=== PATIENT | female | born 2000 | race Caucasian/White ===

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

== ENCOUNTER 2020-02-09 21:29 | Emergency (ER) | payer MEDICAID ==
[~2020-02-09] VITALS: Ht 150 cm; Wt 45.4 kg
[2020-02-09] MEDS ORDERED: NS IV 500 ML 500 ML IV ONE (22:37)
--- NOTE | 2020-02-09 22:42 | ED Abdominal Pain ---
General Chief Complaint: Abdominal/GI Problems Stated Complaint: ABDOMINAL PAIN Nursing Triage Note: Pt amb to room #5 with c/o epigastric pain that increases in severity after eating. Pt reports symptoms began approx x2wks ago. Pt denies nausa, vomitng, diarrhea, fever, or chills. Pt noted to be hesitant to answer questions asked by this RN. S/O at bedside. Sepsis Screen: No Definite Risk Source of Information: Patient Exam Limitations: No Limitations History of Present Illness Date Seen by Provider: Feb 09, 2020 Time Seen by Provider: 22:20 Initial Comments The patient presents to ER by private conveyance with her significant other does most talking for her stating that she is very shy. She is not a particularly helpful historian. The patient states she has been experiencing pain for about the last hour reading as a 10 out of 10 in her epigastric region. An hour and a half prior to that she ate chicken strips and vietnamese fries. She says she's been having these episodic pain usually after eating for the past 2 weeks. It really started getting bad Friday, 3 days ago. She's had no nausea vomiting bloating or distention of her abdomen. No abdominal surgeries or known medical history. She does not follow with a doctor. She does not take any medications. She says her last menstrual cycle was January 07 she's not sure if she is regular nor she sure how long her periods usually last. She is not on her menses presently. She denies painful urination. She's had no endoscopy, history of constipation or diarrhea, fever, chills. She has not tried to take anything for her pain yet. Her last oral intake was 2-1/2 hours ago. Allergies and Home Medications Allergies Coded Allergies: No Known Drug Allergies (Unverified , 12/31/10) Home Medications No Active Prescriptions or Reported Meds Patient Home Medication List Home Medication List Reviewed: Yes Review of Systems Review of Systems Constitutional: No chills, No diaphoresis EENTM: No Blurred Vision, No Double Vision Respiratory: Denies Cough, Denies Shortness of Air Cardiovascular: Denies Chest Pain, Denies Lightheadedness Gastrointestinal: Denies Constipated, Denies Diarrhea, Denies Nausea Genitourinary: Denies Burning, Denies Discharge Musculoskeletal: No back pain, No joint pain Skin: No pruritus, No rash Psychiatric/Neurological: Denies Headache, Denies Numbness, Denies Paresthesia All Other Systems Reviewed Negative Unless Noted: Yes Past Uoysdfm-Uoaeht-Cwvwhd Hx Patient Social History Alcohol Use: Denies Use Recreational Drug Use: No Smoking Status: Never a Smoker 2nd Hand Smoke Exposure: Yes Recent Foreign Travel: No Contact w/Someone Who Travel: No Recent Infectious Disease Expo: No Recent Hopitalizations: No Immunizations Up To Date Tetanus Booster (TDap): Less than 5yrs PED Vaccines UTD: Yes Seasonal Allergies Seasonal Allergies: No Past Medical History Surgeries: No Respiratory: No Cardiac: No Neurological: No Genitourinary: No Gastrointestinal: No Musculoskeletal: No Endocrine: No Cancer: No Psychosocial: No Integumentary: No Blood Disorders: No Family Medical History No Pertinent Family Hx Physical Exam Vital Signs Vital Signs - First Documented 02/09/20 22:09 Temp 36.9 Pulse 17 Resp 16 B/P (MAP) 124/83 (97) Pulse Ox 99 O2 Delivery Room Air Capillary Refill : Less Than 3 Seconds Height/Weight/BMI Height: 5'0" Weight: 90lbs. oz. 40.971427xa; 20.00 BMI Method:Estimated General Appearance: WD/WN, mild distress HEENT: PERRL/EOMI, pharynx normal Neck: non-tender, full range of motion, supple, normal inspection Respiratory: chest non-tender, lungs clear, normal breath sounds, no respiratory distress, no accessory muscle use Cardiovascular: normal peripheral pulses, regular rate, rhythm, no edema Peripheral Pulses: 2+ Dorsalis Pedis (R), 2+ Left Dors-Pedis (L) Gastrointestinal: normal bowel sounds (all 4 quadrants), soft, tenderness (epigastric and right upper quadrant. Michaud sign positive. Negative for Rovsing sign and McBurney's point tenderness, psoas sign or other mesenteric signs.) Neurologic/Psychiatric: alert, normal mood/affect, oriented x 3 Skin: normal color, warm/dry Progress/Results/Core Measures Results/Orders Lab Results Laboratory Tests Test 02/09/20 22:19 02/09/20 22:38 Range/Units White Blood Count 7.7 4.3-11.0 10^3/uL Red Blood Count 5.05 4.35-5.85 10^6/uL Hemoglobin 14.1 11.5-16.0 G/DL Hematocrit 42 35-52 % Mean Corpuscular Volume 83 80-99 FL Mean Corpuscular Hemoglobin 28 25-34 PG Mean Corpuscular Hemoglobin Concent 34 32-36 G/DL Red Cell Distribution Width 13.0 10.0-14.5 % Platelet Count 362 130-400 10^3/uL Mean Platelet Volume 10.4 7.4-10.4 FL Neutrophils (%) (Auto) 53 42-75 % Lymphocytes (%) (Auto) 36 12-44 % Monocytes (%) (Auto) 9 0-12 % Eosinophils (%) (Auto) 2 0-10 % Basophils (%) (Auto) 1 0-10 % Neutrophils # (Auto) 4.1 1.8-7.8 X 10^3 Lymphocytes # (Auto) 2.7 1.0-4.0 X 10^3 Monocytes # (Auto) 0.7 0.0-1.0 X 10^3 Eosinophils # (Auto) 0.2 0.0-0.3 10^3/uL Basophils # (Auto) 0.1 0.0-0.1 10^3/uL Sodium Level 141 135-145 MMOL/L Potassium Level 3.9 3.6-5.0 MMOL/L Chloride Level 103 98-107 MMOL/L Carbon Dioxide Level 27 21-32 MMOL/L Anion Gap 11 5-14 MMOL/L Blood Urea Nitrogen 8 7-18 MG/DL Creatinine 1.03 0.60-1.30 MG/DL Estimat Glomerular Filtration Rate > 60 BUN/Creatinine Ratio 8 Glucose Level 95 70-105 MG/DL Calcium Level 9.9 8.5-10.1 MG/DL Corrected Calcium 8.5-10.1 MG/DL Total Bilirubin 0.4 0.1-1.0 MG/DL Aspartate Amino Transf (AST/SGOT) 14 5-34 U/L Alanine Aminotransferase (ALT/SGPT) 14 0-55 U/L Alkaline Phosphatase 68 40-136 U/L C-Reactive Protein High Sensitivity 0.03 0.00-0.50 MG/DL Total Protein 8.2 6.4-8.2 GM/DL Albumin 4.9 H 3.2-4.5 GM/DL Lipase 14 8-78 U/L Urine Color YELLOW Urine Clarity CLEAR Urine pH 8.5 5-9 Urine Specific [place] 1.015 L 1.016-1.022 Urine Protein NEGATIVE NEGATIVE Urine Glucose (UA) NEGATIVE NEGATIVE Urine Ketones NEGATIVE NEGATIVE Urine Nitrite NEGATIVE NEGATIVE Urine Bilirubin NEGATIVE NEGATIVE Urine Urobilinogen 0.2 < = 1.0 MG/DL Urine Leukocyte Esterase NEGATIVE NEGATIVE Urine RBC (Auto) NEGATIVE NEGATIVE Urine RBC NONE /HPF Urine WBC RARE /HPF Urine Crystals NONE /LPF Urine Bacteria TRACE /HPF Urine Casts NONE /LPF Urine Mucus NEGATIVE /LPF Urine Culture Indicated NO My Orders Orders - CLARIBEL MILLS Cbc With Automated Diff (02/09/20 22:37) Hs C Reactive Protein (02/09/20 22:37) Comprehensive Metabolic Panel (02/09/20 22:37) Lipase (02/09/20 22:37) Ed Iv/Invasive Line Start (02/09/20 22:37) Ns Iv 500 Ml (Sodium Chloride 0.9%) (02/09/20 22:37) Pantoprazole Injection (Protonix Injecti (02/09/20 22:45) Ketorolac Injection (Toradol Injection) (02/09/20 22:45) Lidocaine 2% Viscous 15 Ml (Xylocaine Vi (02/10/20 00:30) Famotidine Tablet (Pepcid Tablet) (02/10/20 00:18) Antacid Suspension (Mylanta Suspension (02/10/20 00:30) Medications Given in ED Current Medications Medications Dose Ordered Sig/Radha Route Start Time Stop Time Status Last Admin Dose Admin Ketorolac Tromethamine 30 mg ONCE ONCE IVP 02/09/20 22:45 02/09/20 22:46 DC 02/09/20 23:03 30 MG Pantoprazole 40 mg ONCE ONCE IV 02/09/20 22:45 02/09/20 22:46 DC 02/09/20 23:03 40 MG Sodium Chloride 500 ml @ 0 mls/hr Q0M ONCE IV 02/09/20 22:37 02/09/20 22:39 DC 02/09/20 23:03 0 MLS/HR Vital Signs/I&O 02/09/20 02/10/20 22:09 03:40 Temp 36.9 Pulse 17 72 Resp 16 16 B/P (MAP) 124/83 (97) 119/76 Pulse Ox 99 100 O2 Delivery Room Air Blood Pressure Mean: 97 Progress Progress Note #1: Time: 22:41 Progress Note Gallbladder, gastritis, pancreatitis? Plan to check labs, urinalysis, bedside . If her labs are not acute and she is still aseptic vital signs and her pain is improved with some Toradol and pantoprazole and the plan would be to send her home for outpatient ultrasound tomorrow. Progress Note #2: Time: 00:18 Progress Note Labs are unremarkable. Patient says the Toradol did not help her pain. Plan to give her a GI cocktail. Likely will set her up tomorrow for outpatient ultrasound. Progress Note #3: Time: 00:33 Progress Note Nurse reports that as she went in the room with the GI cocktail medications the patient decided to leave AMA. No reason was given other than the boyfriend said he had to get to work. We did not get a chance to interact with the patient before she left. She did seem to be aware of her surroundings, cognizant of the situation and possessed the capacity to make decisions for herself. Nursing instructed her to follow-up with her doctor or return to the ER for symptoms did not improve or worsened. Nursing also warned her that since the workup was not complete the could be undiscovered pathology that could result in disability or even . Departure Impression Primary Impression: Right upper quadrant abdominal pain Disposition: 07 AGAINST MEDICAL ADVICE Condition: Against Medical Advice Departure-Patient Inst. Decision time for Depature: 00:33 Referrals: NO,LOCAL PHYSICIAN (PCP/Family) Primary Care Physician Patient Instructions: Acute Abdomen (Belly Pain) Add. Discharge Instructions: Please return to the ER having worsening or continuing symptoms. Follow-up with your primary care doctor. Omeprazole 20 mg twice a day for the next month. All discharge instructions reviewed with patient and/or family. Voiced understanding. Scripts No Active Prescriptions or Reported Meds CLARIBEL MILLS Feb 09, 2020 22:42
[2020-02-09] MEDS ORDERED: PANTOPRAZOLE 40 MG (PROTONIX) VIAL IV ONE (22:45)
[2020-02-09] MEDS ORDERED: KETOROLAC 30 MG/ML VIAL IVP ONE (22:45)
[2020-02-09 22:47] LABS: BILIRUBIN,URINE NEGATIVE (NEGATIVE); CLARITY,URINE CLEAR; COLOR,URINE YELLOW; GLUCOSE, URINE (UA) NEGATIVE (NEGATIVE); KETONES,URINE NEGATIVE (NEGATIVE); LEUKOCYTE ESTERASE ,URINE NEGATIVE (NEGATIVE); NITRITE,URINE NEGATIVE (NEGATIVE); PH,URINE 8.5 (5-9); PROTEIN,URINE NEGATIVE (NEGATIVE)
[2020-02-09 22:51] LABS: BASOPHILS # (AUTO) 0.1 10^3/uL (0.0-0.1); BASOPHILS % (AUTO) 1 % (0-10); EOSINOPHILS # (AUTO) 0.2 10^3/uL (0.0-0.3); EOSINOPHILS % (AUTO) 2 % (0-10); HEMATOCRIT 42 % (35-52); HEMOGLOBIN 14.1 G/DL (11.5-16.0); LYMPHOCYTES # (AUTO) 2.7 X 10^3 (1.0-4.0); LYMPHOCYTES % (AUTO) 36 % (12-44); MEAN CORPUSCULAR HEMOGLOBIN 28 PG (25-34); MEAN CORPUSCULAR HGB CONC 34 G/DL (32-36); MEAN CORPUSCULAR VOLUME 83 FL (80-99); MEAN PLATELET VOLUME 10.4 FL (7.4-10.4); MONOCYTES # (AUTO) 0.7 X 10^3 (0.0-1.0); MONOCYTES % (AUTO) 9 % (0-12); NEUTROPHILS # (AUTO) 4.1 X 10^3 (1.8-7.8); NEUTROPHILS % (AUTO) 53 % (42-75); PLATELET COUNT 362 10^3/uL (130-400); WHITE BLOOD COUNT 7.7 10^3/uL (4.3-11.0)
[2020-02-09 22:53] LABS: BACTERIA,URINE TRACE /HPF; WBC,URINE RARE /HPF
[2020-02-09 23:03] LABS: ALANINE AMINOTRANSFERASE 14 U/L (0-55); ALBUMIN 4.9 GM/DL (3.2-4.5); ALKALINE PHOSPHATASE 68 U/L (40-136); BILIRUBIN,TOTAL 0.4 MG/DL (0.1-1.0); BUN/CREATININE RATIO 8; CALCIUM 9.9 MG/DL (8.5-10.1); CARBON DIOXIDE 27 MMOL/L (21-32); CHLORIDE 103 MMOL/L (98-107); CREATININE SERUM 1.03 MG/DL (0.60-1.30); GFR ESTIMATED > 60; GLUCOSE 95 MG/DL (70-105); LIPASE 14 U/L (8-78); POTASSIUM 3.9 MMOL/L (3.6-5.0); SODIUM 141 MMOL/L (135-145); TOTAL PROTEIN 8.2 GM/DL (6.4-8.2)
[2020-02-10] MEDS ORDERED: FAMOTIDINE 20 MG (PEPCID) TABLET PO STA (00:18)
--- NOTE | 2020-02-10 00:25 | NUR ---
TO ROOM TO ADMINISTER MEDICATIONS ORDERED BY DR MILLS, PATIENT AND S.O. ASK HOW MUCH LONGER IT WILL BE BEFORE THEY CAN GO. THIS RN DISCUSSED THE TREATMENT PLAN INCLUDING MEDICATIONS IN ROOM TO BE ADMINISTERED NOW. PATIENT DISCUSSES FURTHER WITH S.O. STATES SHE WILL TAKE THE MEDS WHICH ARE SCANNED, THEN WHEN DOCUMENTATION IS COMPLETE PATIENT CHANGES HER MIND AND STATES SHE JUST WANTS TO GO. AMA PAPERWORK DISCUSSED ADN AGREED TO. THIS RN REVERSES ALL MEDICATION DOCUMENTATION. PATIENT SIGNS AMA PAPERWORK AFTER RN REVIEWS WITH PATIENT THEN ESCORTED TO REGISTRATION ON HER WAY OUT.
[2020-02-10] MEDS ORDERED: ANTACID SUSP 30 ML UDC (MYLANTA) PO ONE (00:30)
[2020-02-10] MEDS ORDERED: LIDOCAINE 2% VISCOUS 15 ML UDC PO ONE (00:30)
[2020-02-10 03:40] VITALS: BP 119/76
--- OUTSIDE RECORDS SUMMARY | 2020-02-11 23:54 | XMS REPORT | Clinical Summary ---
Author Author Admin, Rjei Posadas [facility] Address Unknown Phone Unavailable Allergies, Adverse Reactions, Alerts Allergy Name Reaction Description Start Date Severity Status Pr ovider No Known Allergies Jud alford LRT Conditions or Problems Problem Name Problem Code Onset Date Status Entry Date Provider Comment Standard Description Annotate Bacterial tonsillitis Active Malu Sell PHYSICAL SCIENCE TEACHER Medication List Medication Instructions Start Date Stop Date Generic Name NDC Status Provider Patient Instruction IBUPROFEN 600 MG ORAL TABLET 1 po q6-8hr PRN IBUP ROFEN 16650835950 Active Malu Sell PHYSICAL SCIENCE TEACHER Active AMOXICILLIN 500 MG ORAL CAPSULE 1 cap by mouth three times a day AMOXICILLIN 72274246142 Active Malu Sell PHYSICAL SCIENCE TEACHER Active Vital Signs Date Name Value Unit Range Description blood pressure, diastolic 66 mm[Hg] BP avilez blood pressure, systolic 104 mm[Hg] BP sys pulse rate E&M 82 /min Heart rate temperature E&M 99.1 [degF] Body temp erature weight E&M 77.50 [lb_av] Weight Measure d Diagnostic Results Date Name Value Unit Range Description Office Visit: fever cough - Chemistry HDL cholesterol, serum, target level 40 mg/dL cholesterol, target level 200 mg/dL triglyceride, target level 150 mg/dL Encounters Code Encounter Date Provider Facility CPT-91487 Level 3 Est. Patient 13:01:31 CDT Malu Nieves ll PHYSICAL SCIENCE TEACHER [facility]
--- OUTSIDE RECORDS SUMMARY | 2020-02-11 23:54 | XMS REPORT | Clinical Summary ---
Author Author Admin, Reji Posadas [facility] Address Unknown Phone Unavailable Allergies, Adverse Reactions, Alerts Allergy Name Reaction Description Start Date Severity Status Pr ovider No Known Allergies Jud alford LRT Conditions or Problems Problem Name Problem Code Onset Date Status Entry Date Provider Comment Standard Description Annotate Bacterial tonsillitis Active Malu Sell SHIPPING AND RECEIVING WEIGHER Medication List Medication Instructions Start Date Stop Date Generic Name NDC Status Provider Patient Instruction IBUPROFEN 600 MG ORAL TABLET 1 po q6-8hr PRN IBUP ROFEN 31840190129 Active Malu Sell SHIPPING AND RECEIVING WEIGHER Active AMOXICILLIN 500 MG ORAL CAPSULE 1 cap by mouth three times a day AMOXICILLIN 49681138055 Active Malu Sell SHIPPING AND RECEIVING WEIGHER Active Vital Signs Date Name Value Unit [...] mg/dL Encounters Code Encounter Date Provider Facility CPT-93566 Level 3 Est. Patient 13:01:31 CDT Malu Se ll SHIPPING AND RECEIVING WEIGHER [facility]
--- OUTSIDE RECORDS SUMMARY | 2020-02-11 23:54 | XMS REPORT | Clinical Summary ---
Author Author Admin, Reji Posadas 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 Patient 13:01:31 CDT Maul Se ll ORNAMENTAL METAL WORKER APPRENTICE [facility]
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
--- OUTSIDE RECORDS SUMMARY | 2020-02-11 23:54 | XMS REPORT | Clinical Summary ---
Author Author Admin, Reji Posadas [facility] Address Unknown Phone Unavailable Allergies, Adverse Reactions, Alerts Allergy Name Reaction Description Start Date Severity Status Pr ovider No Known Allergies Jud alford LRT Conditions or Problems Problem Name Problem Code Onset Date Status Entry Date Provider Comment Standard Description Annotate Bacterial tonsillitis Active Malu Sell DIRECTOR OF GRADUATE ADMISSIONS Medication List Medication Instructions Start Date Stop Date Generic Name NDC Status Provider Patient Instruction IBUPROFEN 600 MG ORAL TABLET 1 po q6-8hr PRN IBUP ROFEN 93570406163 Active Malu Sell DIRECTOR OF GRADUATE ADMISSIONS Active AMOXICILLIN 500 MG ORAL CAPSULE 1 cap by mouth three times a day AMOXICILLIN 76444655353 Active Malu Sell DIRECTOR OF GRADUATE ADMISSIONS Active Vital Signs Date Name Value Unit [...] mg/dL Encounters Code Encounter Date Provider Facility CPT-94508 Level 3 Est. Patient 13:01:31 CDT Malu Se ll DIRECTOR OF GRADUATE ADMISSIONS [facility]
--- OUTSIDE RECORDS SUMMARY | 2020-02-11 23:54 | XMS REPORT | Clinical Summary ---
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 Medication List Medication Instructions Start Date Stop Date Generic Name NDC Status Provider Patient Instruction IBUPROFEN 600 MG ORAL TABLET 1 po q6-8hr PRN IBUP ROFEN 30301777922 Active Malu Sell SCAN COORDINATOR Active AMOXICILLIN 500 MG ORAL CAPSULE 1 cap by mouth three times a day AMOXICILLIN 77200379914 No Longer Active Malu Sell SCAN COORDINATOR Active AMOXICILLIN 500 MG ORAL CAPSULE 1 cap by mouth three times a day AMOXICILLIN 500 MG ORAL CAPSULE 505010 AMOXICILLIN Inactive Vital Signs Date Name Value Unit Range [...] mg/dL Encounters Code Encounter Date Provider Facility CPT-74050 Level 3 Est. Patient 13:01:31 CDT Malu Se ll SCAN COORDINATOR [facility]
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
--- OUTSIDE RECORDS SUMMARY | 2020-02-11 23:55 | XMS REPORT ---
Author Author Reji Schultz [facility] [place] Address [address] [place] [address] Care Team Providers Care Director Of Operations Support Name Role Phone BHUPENDRA Schultz Unavailable PROBLEMS Unknown Problems ALLERGIES No Information ENCOUNTERS Encounter Location Date Diagnosis [facility] [address] [phone] Jan, Influenza A J10.1 and Fever R50.9 [facility] [address] [phone] Jan, Bacterial conjunctivitis of right eye H10.9 [facility] [place] [address] [place] [address] Jan, Viral upper respiratory tract infection J06.9 [facility] [place] [id number] [place] [phone] Aug, Encounter for examination to participate in special olympics Z02.5 ; Exercise counseling Z71.89 and Dietary counseling Z71.3 [facility] [address] [phone] Aug, Acute seasonal allergic rhin itis due to other allergen J30.2 [facility] [address] [id number] [address] [place] [phone] Oct, Allergic contact dermatitis, unspecified trigger L23.9 [facility] [address] [phone] Mar, Seasonal allergies J30.2 [facility] [address] [id number] [address] [place] [phone] Mar, [facility] [address] [place] [phone] Aug, [facility] [address] [facility] [id number] [address] [place] [phone] Aug, [facility] [address] [facility] [id number] [address] [place] [phone] Jul, [facility] [address] [facility] [id number] [address] [place] [phone] March, [facility] [address] [facility] [id number] [address] [place] [phone] Mar, IMMUNIZATIONS No Known Immunizations SOCIAL HISTORY Never Assessed REASON FOR VISIT PLAN OF CARE VITAL SIGNS Height 56 in 2014-09-01 Weight 77.2 lbs 2014-09-01 Temperature 97.6 degrees Fahrenheit 2014-09-01 Heart Rate 67 bpm 2014-09-01 Respiratory Rate 20 2014-09-01 Blood pressure systolic 90 mmHg 2014-09-01 Blood pressure diastolic 50 mmHg 2014-09-01 MEDICATIONS No Known Medications RESULTS No Results PROCEDURES No Known procedures INSTRUCTIONS MEDICATIONS ADMINISTERED No Known Medications MEDICAL (GENERAL) HISTORY Type Description Date Surgical History No Surgical history information
--- OUTSIDE RECORDS SUMMARY | 2020-02-11 23:55 | XMS REPORT ---
Author Author Reji Loaiza Doctor Organization [facility] [place] Address Unknown Phone Unavailable Care Team Providers Care Corporate Librarian Name Role Phone Migration, Doctor Unavailable Unavailable PROBLEMS Unknown Problems ALLERGIES No Information ENCOUNTERS Encounter Location Date Diagnosis [facility] [address] [id number] [address] [place] [phone] Jan, Influenza A J10.1 and Fever R50.9 [facility] [address] [id number] [address] [place] [phone] Jan, Bacterial conjunctivitis of right eye H10.9 [facility] [place] [address] [place] [address] Jan, Viral upper respiratory tract infection J06.9 [facility] [place] [id number] [place] [address] [phone] Aug, Encounter for examination to participate in special olympics Z02.5 ; Exercise counseling Z71.89 and Dietary counseling Z71.3 [facility] [address] [id number] [address] [place] [phone] Aug, Acute seasonal allergic rhin itis due to other allergen J30.2 [facility] [address] [id number] [address] [place] [phone] Oct, Allergic contact dermatitis, unspecified trigger L23.9 [facility] [address] [id number] [address] [place] [phone] Mar, Seasonal allergies J30.2 [facility] [address] [id number] [address] [place] [phone] Mar, [facility] [address] [id number] [address] [place] [phone] Aug, [facility] [id number] [place] [phone] Aug, [facility] [address] [facility] [id number] [address] [place] [phone] Jul, [facility] [address] [facility] [id number] [address] [place] [phone] March, [facility] [address] [facility] [id number] [address] [place] [phone] Mar, IMMUNIZATIONS No Known Immunizations SOCIAL HISTORY Never Assessed REASON FOR VISIT [facility] PLAN OF CARE VITAL SIGNS MEDICATIONS No Known Medications RESULTS No Results PROCEDURES No Known procedures INSTRUCTIONS MEDICATIONS ADMINISTERED No Known Medications MEDICAL (GENERAL) HISTORY Type Description Date Surgical History No Surgical history information
--- OUTSIDE RECORDS SUMMARY | 2020-02-11 23:55 | XMS REPORT ---
Author Author Reji CARRANZA Organization [facility] Address [address] [place] [address] Care Team Providers Care Development Educator Name Role Phone GEOFFREY CARRANZA Unavailable PROBLEMS Unknown Problems ALLERGIES No Known Allergies ENCOUNTERS Encounter Location Date Diagnosis [facility] [address] [id number] [address] [place] [phone] Jan, Influenza A J10.1 and Fever R50.9 [facility] WALK IN [facility] [address] [id number] [address] [place] [phone] Jan, Bacterial conjunctivitis of right eye H10.9 [facility] [place] [address] [place] [address] Jan, Viral upper respiratory tract infection J06.9 [facility] [place] [address] [id number] [place] [address] [phone] Aug, Encounter for examination to participate in special olympics Z02.5 ; Exercise counseling Z71.89 and Dietary counseling Z71.3 [facility] WALK IN [facility] [address] [id number] [address] [place] [phone] Aug, Acute seasonal allergic rhin itis due to other allergen J30.2 [facility]ALK IN [facility] [address] [id number] [address] [place] [phone] Oct, Allergic contact dermatitis, unspecified trigger L23.9 [facility] WALK IN [facility] [address] [id number] [address] [place] [phone] Mar, Seasonal allergies J30.2 [facility] [address] [id number] [address] [place] [phone] Mar, [facility] [address] [id number] [address] [place] [phone] Aug, [facility] [address] [facility] [id number] [address] [place] [phone] Aug, [facility] [address] [facility] [id number] [address] [place] [phone] Jul, [facility] [address] [facility] [id number] [address] [place] [phone] March, [facility] [address] [facility] [id number] [address] [place] [phone] Mar, IMMUNIZATIONS No Known Immunizations SOCIAL HISTORY Never Assessed REASON FOR VISIT fever/cough/congestion. Started two days ago. - Robby KELLEY PLAN OF CARE Activity Details Follow Up if not improving with PCP or reg follow up Reason: VITAL SIGNS Height 60 in 2019-02-19 Weight 82 lbs 2019-02-19 Temperature 101.9 degrees Fahrenheit 2019-02-19 Heart Rate 90 bpm 2019-02-19 Respiratory Rate 20 2019-02-19 BMI 16.01 kg/m2 2019-02-19 Blood pressure systolic 102 mmHg 2019-02-19 Blood pressure diastolic 62 mmHg 2019-02-19 MEDICATIONS Medication Instructions Dosage Frequency Start Date End Date Duration S tatus Polytrim 62313-1.1 UNIT/ML Ophthalmic Four times a day 1 drop in to affected eye 6h Jan, 7 days Active Oseltamivir Phosphate 75 MG Orally Twice a day 1 capsule 12h Jan, 5 day(s) Active RESULTS Name Result Date Reference Range INFLUENZA A & B (IN HOUSE) INFLUENZA A positive INFLUENZA B negative Control + Lot # [id number] Exp date 2021-09-15 PROCEDURES Procedure Date Ordered Result Body Site INFLUENZA ASSAY W/OPTIC February 19, 2019 INSTRUCTIONS MEDICATIONS ADMINISTERED No Known Medications MEDICAL (GENERAL) HISTORY Type Description Date Surgical History No Surgical history information
--- OUTSIDE RECORDS SUMMARY | 2020-02-11 23:55 | XMS REPORT ---
Author Author Reji DECKER Organization [facility] Address [address] [place] [address] Care Team Providers Care Architectural Design Lecturer Name Role Phone BRIANNE MARY Unavailable PROBLEMS Unknown Problems ALLERGIES No Known Allergies ENCOUNTERS Encounter Location Date Diagnosis [facility] [address] [phone] Jan, Influenza A J10.1 and Fever R50.9 [facility] [address] [phone] Jan, Bacterial conjunctivitis of right eye H10.9 [facility] [place] [address] [place] [address] Jan, Viral upper respiratory tract infection J06.9 [facility] [place] [id number] [place] [phone] Aug, Encounter for examination to participate in special olympics Z02.5 ; Exercise counseling Z71.89 and Dietary counseling Z71.3 [facility] [address] [id number] [address] [place] [phone] Aug, Acute seasonal allergic rhin itis due to other allergen J30.2 [facility] [address] [id number] [address] [place] [phone] Oct, Allergic contact dermatitis, unspecified trigger L23.9 [facility] [address] [id number] [address] [place] [phone] Mar, Seasonal allergies J30.2 [facility] [address] [id number] [address] [place] [phone] Mar, [facility] [address] [place] [address] Aug, [facility] [address] [facility] [id number] [address] [place] [phone] Aug, [facility] [address] [facility] [id number] [address] [place] [phone] Jul, [facility] [address] [facility] [id number] [address] [place] [phone] March, [facility] [address] [facility] [id number] [address] [place] [phone] Mar, IMMUNIZATIONS No Known Immunizations SOCIAL HISTORY Never Assessed REASON FOR VISIT right eye pain et is red for the past 4 days. [email or web address] PLAN OF CARE Activity Details Follow Up if not improving with PCP or reg follow up Reason: VITAL SIGNS Height 60 in 2019-02-15 Weight 97.2 lbs 2019-02-15 Temperature 97.8 degrees Fahrenheit 2019-02-15 Heart Rate 72 bpm 2019-02-15 Respiratory Rate 20 2019-02-15 BMI 18.98 kg/m2 2019-02-15 Blood pressure systolic 100 mmHg 2019-02-15 Blood pressure diastolic 62 mmHg 2019-02-15 MEDICATIONS Medication Instructions Dosage Frequency Start Date End Date Duration S tatus Polytrim 64546-3.1 UNIT/ML Ophthalmic Four times a day 1 drop in to affected eye 6h Jan, 7 days Active RESULTS No Results PROCEDURES No Known procedures INSTRUCTIONS MEDICATIONS ADMINISTERED No Known Medications MEDICAL (GENERAL) HISTORY Type Description Date Surgical History No Surgical history information
== END 2020-02-10 00:33 | disposition left against medical advice (07) ==
LOC: EDUNIT# 21:29 → ER 21:31
DX: R10.11 Right upper quadrant pain (principal); Z77.22 Contact with and (suspected) exposure to environmental tobacco smoke (acute) (chronic)
CPT/HCPCS: 36415; 80053; 81000; 83690; 84703; 85025; 86141

== ENCOUNTER 2020-02-26 20:42 | Emergency (ER) | payer MEDICAID ==
[~2020-02-26] VITALS: Ht 59 cm; Wt 45.0 kg
--- NOTE | 2020-02-26 20:51 | NUR ---
PT TO OR 6 AT THIS TIME.
[2020-02-26] MEDS ORDERED: FAMOTIDINE 20MG/2ML IV (PEPCID) IV STA (20:58)
[2020-02-26] MEDS ORDERED: LACTATED RINGERS 1,000 ML IV ONE (20:58)
[2020-02-26] MEDS ORDERED: ONDANSETRON 4 MG/2 ML (SDV) Z0FRAN IVP ONE (21:00)
[2020-02-26] MEDS ORDERED: ANTACID SUSP 30 ML UDC (MYLANTA) PO ONE (21:00)
[2020-02-26] MEDS ORDERED: LIDOCAINE 2% VISCOUS 15 ML UDC PO ONE (21:00)
--- NOTE | 2020-02-26 21:14 | ED Abdominal Pain ---
General Chief Complaint: Abdominal/GI Problems Stated Complaint: NAUSEA AND TIGHTNESS IN STOMACH Nursing Triage Note: pt states her stomach is nauseated and after she ate spaghetti she feels like she needs to throw up. Sepsis Screen: No Definite Risk Source of Information: Patient Exam Limitations: No Limitations History of Present Illness Date Seen by Provider: Feb 26, 2020 Time Seen by Provider: 20:49 Initial Comments This 20-year-old young lady presents to the emergency room with complaints of abdominal tightness and that nausea without vomiting for about a week. Tonight her abdominal tightening became more intense and she developed intense upper abdominal pain while eating spaghetti. She is still nauseated but has not vomited. She denies any constipation or diarrhea. She does not know if she is . She has had no fever or other symptoms of infectious illness. She denies any alcohol, tobacco, or drug use. She has not taken any medications or treatments for her symptoms. Allergies and Home Medications Allergies Coded Allergies: No Known Drug Allergies (Unverified , 02/26/20) Home Medications Famotidine 20 Mg Tablet, 20 MG PO BID Prescribed by: MIGUEL DELONG on 02/26/202228 Ondansetron 4 Mg Tab.rapdis, 4 MG SL Q4H PRN for NAUSEA/VOMITING Prescribed by: MIGUEL DELONG on 02/26/202228 Patient Home Medication List Home Medication List Reviewed: Yes Review of Systems Review of Systems Constitutional: no symptoms reported EENTM: No Symptoms Reported Respiratory: No Symptoms Reported Cardiovascular: No Symptoms Reported Gastrointestinal: See HPI Genitourinary: No Symptoms Reported Musculoskeletal: no symptoms reported Skin: no symptoms reported Psychiatric/Neurological: No Symptoms Reported Endocrine: No Symptoms Reported Hematologic/Lymphatic: No Symptoms Reported Past Pncmzpe-Drgnct-Nebbkl Hx Past Med/Social Hx: Reviewed Nursing Past Med/Soc Hx Patient Social History Alcohol Use: Denies Use Recreational Drug Use: No Smoking Status: Never a Smoker Recent Foreign Travel: No Contact w/Someone Who Travel: No Recent Infectious Disease Expo: No Past Medical History Surgeries: No Respiratory: No Cardiac: No Neurological: No : No Genitourinary: No Gastrointestinal: No Musculoskeletal: No Endocrine: No HEENT: No Cancer: No Psychosocial: No Physical Exam Vital Signs Vital Signs - First Documented 02/26/20 20:47 Temp 36.7 Pulse 90 Resp 20 B/P (MAP) 119/74 (89) Pulse Ox 100 O2 Delivery Room Air Capillary Refill : Less Than 3 Seconds Height/Weight/BMI Height: '" Weight: lbs. oz. kg; 129.00 BMI Method: General Appearance: WD/WN, mild distress HEENT: PERRL/EOMI, normal ENT inspection, other (oropharynx somewhat dry) Neck: normal inspection Respiratory: lungs clear, normal breath sounds, no respiratory distress, no accessory muscle use Cardiovascular: regular rate, rhythm, no edema, no murmur Gastrointestinal: normal bowel sounds, soft; No distended; tenderness (throughout the upper abdomen) Extremities: normal inspection, no pedal edema Neurologic/Psychiatric: vegetables cook II-XII nml as tested, no motor/sensory deficits, alert, normal mood/affect, oriented x 3 Skin: normal color, warm/dry Progress/Results/Core Measures Results/Orders Lab Results Laboratory Tests Test 02/26/20 21:02 02/26/20 21:05 02/26/20 21:43 Range/Units Urine Color YELLOW Urine Clarity CLEAR Urine pH 6.5 5-9 Urine Specific [place] 1.010 L 1.016-1.022 Urine Protein NEGATIVE NEGATIVE Urine Glucose (UA) NEGATIVE NEGATIVE Urine Ketones NEGATIVE NEGATIVE Urine Nitrite NEGATIVE NEGATIVE Urine Bilirubin NEGATIVE NEGATIVE Urine Urobilinogen 0.2 < = 1.0 MG/DL Urine Leukocyte Esterase NEGATIVE NEGATIVE Urine RBC (Auto) NEGATIVE NEGATIVE Urine RBC NONE /HPF Urine WBC 0-2 /HPF Urine Crystals PRESENT H /LPF Urine Amorphous Sediment FEW BETITO URATES H /LPF Urine Bacteria TRACE /HPF Urine Casts NONE /LPF Urine Mucus NEGATIVE /LPF Urine Culture Indicated NO White Blood Count 6.8 4.3-11.0 10^3/uL Red Blood Count 4.81 4.35-5.85 10^6/uL Hemoglobin 13.4 11.5-16.0 G/DL Hematocrit 40 35-52 % Mean Corpuscular Volume 83 80-99 FL Mean Corpuscular Hemoglobin 28 25-34 PG Mean Corpuscular Hemoglobin Concent 34 32-36 G/DL Red Cell Distribution Width 13.4 10.0-14.5 % Platelet Count 328 130-400 10^3/uL Mean Platelet Volume 10.5 H 7.4-10.4 FL Neutrophils (%) (Auto) 53 42-75 % Lymphocytes (%) (Auto) 36 12-44 % Monocytes (%) (Auto) 8 0-12 % Eosinophils (%) (Auto) 2 0-10 % Basophils (%) (Auto) 1 0-10 % Neutrophils # (Auto) 3.6 1.8-7.8 X 10^3 Lymphocytes # (Auto) 2.4 1.0-4.0 X 10^3 Monocytes # (Auto) 0.5 0.0-1.0 X 10^3 Eosinophils # (Auto) 0.2 0.0-0.3 10^3/uL Basophils # (Auto) 0.1 0.0-0.1 10^3/uL Sodium Level 139 135-145 MMOL/L Potassium Level 3.7 3.6-5.0 MMOL/L Chloride Level 102 98-107 MMOL/L Carbon Dioxide Level 26 21-32 MMOL/L Anion Gap 11 5-14 MMOL/L Blood Urea Nitrogen 8 7-18 MG/DL Creatinine 0.94 0.60-1.30 MG/DL Estimat Glomerular Filtration Rate > 60 BUN/Creatinine Ratio 9 Glucose Level 76 70-105 MG/DL Calcium Level 9.9 8.5-10.1 MG/DL Corrected Calcium 8.5-10.1 MG/DL Total Bilirubin 0.4 0.1-1.0 MG/DL Aspartate Amino Transf (AST/SGOT) 16 5-34 U/L Alanine Aminotransferase (ALT/SGPT) 18 0-55 U/L Alkaline Phosphatase 75 40-136 U/L Total Protein 8.5 H 6.4-8.2 GM/DL Albumin 5.0 H 3.2-4.5 GM/DL Lipase 19 8-78 U/L Serum Test, Qualitative NEGATIVE NEGATIVE C-Reactive Protein High Sensitivity 0.02 0.00-0.50 MG/DL My Orders Orders - MIGUEL LOPEZ MD Cbc With Automated Diff (02/26/20 20:58) Comprehensive Metabolic Panel (02/26/20 20:58) Hcg,Qualitative Serum (02/26/20 20:58) Lipase (02/26/20 20:58) Ua Culture If Indicated (02/26/20 20:58) Ed Iv/Invasive Line Start (02/26/20 20:58) Lactated Ringers (Lr 1000 Ml Iv Solution (02/26/20 20:58) Ondansetron Injection (Zofran Injectio (02/26/20 21:00) Lidocaine 2% Viscous 15 Ml (Xylocaine Vi (02/26/20 21:00) Antacid Suspension (Mylanta Suspension (02/26/20 21:00) Famotidine Injection (Pepcid Injection) (02/26/20 20:58) Fentanyl Injection (Sublimaze Injection (02/26/20 21:45) Hs C Reactive Protein (02/26/20 21:43) Abdomen, Flat & Upright/Decub (02/26/20 21:56) Medications Given in ED Current Medications Medications Dose Ordered Sig/Radha Route Start Time Stop Time Status Last Admin Dose Admin Al Hydrox/Mg Hydrox/Simethicone 30 ml ONCE ONCE PO 02/26/20 21:00 02/26/20 21:01 DC 02/26/20 21:13 30 ML Fentanyl Citrate 50 mcg ONCE ONCE IVP 02/26/20 21:45 02/26/20 21:46 DC 02/26/20 21:47 50 MCG Lactated Ringer's 1,000 ml @ 0 mls/hr Q0M ONCE IV 02/26/20 20:58 02/26/20 21:01 DC 02/26/20 21:13 0 MLS/HR Lidocaine HCl 15 ml ONCE ONCE PO 02/26/20 21:00 02/26/20 21:01 DC 02/26/20 21:13 15 ML Ondansetron HCl 4 mg ONCE ONCE IVP 02/26/20 21:00 02/26/20 21:01 DC 02/26/20 21:13 4 MG Vital Signs/I&O 02/26/20 20:47 Temp 36.7 Pulse 90 Resp 20 B/P (MAP) 119/74 (89) Pulse Ox 100 O2 Delivery Room Air Blood Pressure Mean: 89 Progress Progress Note #1: Time: 21:13 Progress Note Patient was seen and examined. We will trial Zofran, Pepcid, and a GI cocktail. Basic labs have been obtained. IV fluids were ordered. Progress Note #2: Time: 22:24 Progress Note Workup was unremarkable. X-rays were obtained and were also unremarkable. GI cocktail and Pepcid did not resolve her pain. She received fentanyl 50 g which completely resolved her pain and she had no further tenderness on exam. Diagnostic Imaging Diagonstic Imaging: Xray Plain Films/CT/US/NM/MRI: abdomen Comments KUB and upright abdominal films were viewed by me. Report not yet available. No acute abnormalities appreciated. Departure Impression Primary Impression: Upper abdominal pain Additional Impression: Nausea Disposition: 01 HOME, SELF-CARE Condition: Improved Departure-Patient Inst. Decision time for Depature: 22:24 Patient Instructions: Acute Abdomen (Belly Pain), Adult (DC) Add. Discharge Instructions: Start with a noncarbonated clear liquid diet and gradually advance your diet with small quantities of bland food as tolerated. Take Pepcid twice daily as prescribed. Use Zofran (ondansetron) as prescribed if needed for nausea and vomiting. Follow-up with your doctor next week. Return to emergency room if you have worsening symptoms. I expect your symptoms to gradually improve over the next several days. All discharge instructions reviewed with patient and/or family. Voiced understanding. Scripts Ondansetron (Ondansetron Odt) 4 Mg Tab.rapdis 4 MG SL Q4H PRN for NAUSEA/VOMITING, #10 TAB Prov: MIGUEL LOPEZ MD 02/26/20 Famotidine (Pepcid) 20 Mg Tablet 20 MG PO BID, #30 TAB Prov: MIGUEL LOPEZ MD 02/26/20 MIGUEL LOPEZ MD Feb 26, 2020 21:14
[2020-02-26 21:26] LABS: BILIRUBIN,URINE NEGATIVE (NEGATIVE); CLARITY,URINE CLEAR; COLOR,URINE YELLOW; GLUCOSE, URINE (UA) NEGATIVE (NEGATIVE); KETONES,URINE NEGATIVE (NEGATIVE); LEUKOCYTE ESTERASE ,URINE NEGATIVE (NEGATIVE); NITRITE,URINE NEGATIVE (NEGATIVE); PH,URINE 6.5 (5-9); PROTEIN,URINE NEGATIVE (NEGATIVE)
[2020-02-26 21:29] LABS: BASOPHILS # (AUTO) 0.1 10^3/uL (0.0-0.1); BASOPHILS % (AUTO) 1 % (0-10); EOSINOPHILS # (AUTO) 0.2 10^3/uL (0.0-0.3); EOSINOPHILS % (AUTO) 2 % (0-10); HEMATOCRIT 40 % (35-52); HEMOGLOBIN 13.4 G/DL (11.5-16.0); LYMPHOCYTES # (AUTO) 2.4 X 10^3 (1.0-4.0); LYMPHOCYTES % (AUTO) 36 % (12-44); MEAN CORPUSCULAR HEMOGLOBIN 28 PG (25-34); MEAN CORPUSCULAR HGB CONC 34 G/DL (32-36); MEAN CORPUSCULAR VOLUME 83 FL (80-99); MEAN PLATELET VOLUME 10.5 FL (7.4-10.4); MONOCYTES # (AUTO) 0.5 X 10^3 (0.0-1.0); MONOCYTES % (AUTO) 8 % (0-12); NEUTROPHILS # (AUTO) 3.6 X 10^3 (1.8-7.8); NEUTROPHILS % (AUTO) 53 % (42-75); PLATELET COUNT 328 10^3/uL (130-400); RED CELL DISTRIBUTION WIDTH 13.4 % (10.0-14.5); WHITE BLOOD COUNT 6.8 10^3/uL (4.3-11.0)
--- NOTE | 2020-02-26 21:39 | NUR ---
PT DENIED IMPROVEMENT AT THIS TIME.
[2020-02-26 21:41] LABS: AMORPHOUS SEDIMENT,UR FEW AMOR URATES /LPF; BACTERIA,URINE TRACE /HPF; WBC,URINE 0-2 /HPF
[2020-02-26 21:44] LABS: ALANINE AMINOTRANSFERASE 18 U/L (0-55); ALKALINE PHOSPHATASE 75 U/L (40-136); BILIRUBIN,TOTAL 0.4 MG/DL (0.1-1.0); BUN/CREATININE RATIO 9; CALCIUM 9.9 MG/DL (8.5-10.1); CARBON DIOXIDE 26 MMOL/L (21-32); CHLORIDE 102 MMOL/L (98-107); CREATININE SERUM 0.94 MG/DL (0.60-1.30); GFR ESTIMATED > 60; GLUCOSE 76 MG/DL (70-105); LIPASE 19 U/L (8-78); POTASSIUM 3.7 MMOL/L (3.6-5.0); SODIUM 139 MMOL/L (135-145); TOTAL PROTEIN 8.5 GM/DL (6.4-8.2)
[2020-02-26] MEDS ORDERED: fentaNYL INJECTION 100 MCG/2 ML AMP IVP ONE (21:45)
--- NOTE | 2020-02-26 22:10 | NUR ---
REPORT TO JOVANY AQUINO
[2020-02-26] MEDS ORDERED: ONDA4TAB11 SL (22:29)
[2020-02-26] MEDS ORDERED: FAMO-119 PO (22:29)
[2020-02-26 22:37] VITALS: BP 119/78
--- NOTE | 2020-02-27 06:45 | Diagnostic Imaging Report ---
INDICATION: Nausea. FINDINGS: Lung bases are clear. Bowel gas pattern is nonspecific. There is no free air. There are no abnormal abdominal calcifications. IMPRESSION: Nonspecific bowel gas pattern Dictated by: Dictated on workstation # [id number]
== END 2020-02-26 22:37 | disposition home or self-care (01) ==
LOC: MERGE 20:45 → EDBD 20:45 → ER 20:45
DX: R10.11 Right upper quadrant pain (principal); R10.12 Left upper quadrant pain
CPT/HCPCS: 36415; 74019; 80053; 81000; 83690; 84703; 85025; 86141

== ENCOUNTER 2020-04-06 15:23 | Emergency (ER) | payer MEDICAID ==
[~2020-04-06] VITALS: Ht 152 cm; Wt 41.4 kg
[~2020-04-06 15:23] MED LIST changes: +FAMO-119 PO; +ONDA4TAB11 SL
--- NOTE | 2020-04-06 15:35 | NUR ---
Pt appears very withdrawn at time of assessment. This nurse overheard the pt on the phone with a male. The male was telling the pt if pt is dishcharged before male returns to not leave or go anywhere.
[2020-04-06] MEDS ORDERED: ONDANSETRON 4 MG (ZOFRAN) ORAL DISSOLVE TAB SL STA (15:44)
[2020-04-06] MEDS ORDERED: METOCLOPRAMIDE 10MG/10ML ORAL SOL(REGLAN) UDC PO STA (15:44)
--- NOTE | 2020-04-06 15:52 | ED GI ---
General Chief Complaint: Abdominal/GI Problems Stated Complaint: NAUSEA Nursing Triage Note: Pt c/o nausea after meals. Pt denies pain or vomiting. Sepsis Screen: No Definite Risk History of Present Illness Date Seen by Provider: April 06, 2020 Time Seen by Provider: 15:40 Initial Comments 20-year-old female presents for nausea after eating. She denies abdominal pain or vomiting. She was seen here in January 2020 for similar symptoms. She does not have a PCP. She is unsure of her last bowel movement, she does report history of constipation. She is not taking any medication at this time. Reports taking her home hCG test that was negative. Timing/Duration: Intermittent Severity/Quality: Mild Location: Epigastric Radiation: No Radiation Associated Symptoms: No Back Pain, No Fever/Chills, No Headache, No Heartburn; Nausea/Vomiting; No Shortness of Air, No Swelling/Mass in Abdomen Allergies and Home Medications Allergies Coded Allergies: No Known Drug Allergies (Unverified , 12/31/10) Home Medications Famotidine 20 Mg Tablet, 20 MG PO BID Prescribed by: MIGUEL DELONG on 02/26/202228 Ondansetron 4 Mg Tab.rapdis, 4 MG SL Q4H PRN for NAUSEA/VOMITING Prescribed by: MIGUEL DELONG on 02/26/202228 Patient Home Medication List Home Medication List Reviewed: Yes Review of Systems Review of Systems Constitutional: no symptoms reported, see HPI Gastrointestinal: See HPI; Denies Abdominal Pain, Denies Diarrhea; Nausea; Denies Poor Appetite, Denies Poor Fluid Intake, Denies Vomiting All Other Systems Reviewed Negative Unless Noted: Yes Past Ffpijzo-Zomvph-Lygznk Hx Past Med/Social Hx: Reviewed Nursing Past Med/Soc Hx Patient Social History Alcohol Use: Denies Use Recreational Drug Use: No 2nd Hand Smoke Exposure: Yes Recent Foreign Travel: No Contact w/Someone Who Travel: No Recent Infectious Disease Expo: No Recent Hopitalizations: No Physical Abuse: No Sexual Abuse: No Mistreated: No Fear: No Immunizations Up To Date Tetanus Booster (TDap): Less than 5yrs PED Vaccines UTD: Yes Seasonal Allergies Seasonal Allergies: No Past Medical History Surgeries: No Respiratory: No Cardiac: No Neurological: No Last Menstrual Period: Mar 20, 2020 Genitourinary: No Gastrointestinal: No Musculoskeletal: No Endocrine: No HEENT: No Cancer: No Psychosocial: No Integumentary: No Blood Disorders: No Family Medical History No Pertinent Family Hx Physical Exam Vital Signs Vital Signs - First Documented 04/06/20 15:31 Temp 37.1 Pulse 86 Resp 20 B/P (MAP) 121/83 (96) Pulse Ox 100 O2 Delivery Room Air Capillary Refill : Less Than 3 Seconds Height/Weight/BMI Height: 5'0" Weight: 90lbs. oz. 40.618938fd; 17.00 BMI Method:Estimated General Appearance: WD/WN, no apparent distress HEENT: PERRL/EOMI, normal ENT inspection, TMs normal, pharynx normal Neck: non-tender, full range of motion, supple, normal inspection Respiratory: chest non-tender, lungs clear, normal breath sounds Cardiovascular: normal peripheral pulses, regular rate, rhythm Gastrointestinal: normal bowel sounds, non tender, soft, no organomegaly; No distended, No guarding, No rebound, No tenderness Extremities: normal range of motion, non-tender, normal inspection Neurologic/Psychiatric: no motor/sensory deficits, alert, normal mood/affect, oriented x 3 Skin: normal color, warm/dry Progress/Results/Core Measures Results/Orders Lab Results Laboratory Tests Test 04/06/20 15:45 Range/Units Urine Color YELLOW Urine Clarity CLEAR Urine pH 7.5 5-9 Urine Specific [place] 1.015 L 1.016-1.022 Urine Protein NEGATIVE NEGATIVE Urine Glucose (UA) NEGATIVE NEGATIVE Urine Ketones NEGATIVE NEGATIVE Urine Nitrite NEGATIVE NEGATIVE Urine Bilirubin NEGATIVE NEGATIVE Urine Urobilinogen 1.0 < = 1.0 MG/DL Urine Leukocyte Esterase 1+ H NEGATIVE Urine RBC (Auto) NEGATIVE NEGATIVE Urine RBC NONE /HPF Urine WBC 2-5 /HPF Urine Squamous Epithelial Cells 10-25 H /HPF Urine Crystals NONE /LPF Urine Bacteria FEW H /HPF Urine Casts NONE /LPF Urine Mucus NEGATIVE /LPF Urine Culture Indicated NO My Orders Orders - ESTER ARORA Ua Culture If Indicated (04/06/20 15:33) Urine Bedside (04/06/20 15:33) Ondansetron Oral Dissolve Tab (Zofran (04/06/20 15:44) Metoclopramide Oral Liquid (Reglan Oral (04/06/20 15:44) Vital Signs/I&O 04/06/20 15:31 Temp 37.1 Pulse 86 Resp 20 B/P (MAP) 121/83 (96) Pulse Ox 100 O2 Delivery Room Air Blood Pressure Mean: 96 Progress Progress Note : Time: 15:40 Progress Note Patient seen and evaluated, will obtain a UA and urine hCG, will give Reglan and Zofran. 1620 Patient reports to be feeling better, she does report increased stress but denies any issues of abuse or problems at home with her boyfriend. She does not work. Discharge instructions and return precautions reviewed with patient. All questions answered. Departure Impression Primary Impression: Nausea alone Disposition: HOME, SELF-CARE Condition: Improved Departure-Patient Inst. Decision time for Depature: 16:20 Referrals: NO,LOCAL PHYSICIAN (PCP/Family) Primary Care Physician Patient Instructions: Nausea and Vomiting, Adult (DC) Add. Discharge Instructions: [place] and soft diet, avoid anything thick, fried or spicy. Increase water in diet, 16 oz every 2 hours, while awake. [facility] care [facility]. Take medication, as prescribed. Return to the Emergency Dept for new, urgent health care problems. All discharge instructions reviewed with patient and/or family. Voiced understanding. Scripts Metoclopramide HCl (Reglan) 5 Mg Tablet 5 MG PO AC, #30 TAB 0 Refills Prov: ESTER ARORA 04/06/20 Ondansetron (Ondansetron Odt) 4 Mg Tab.rapdis 4 MG PO Q6H PRN for NAUSEA/VOMITING, #12 TAB 0 Refills Prov: ESTER ARORA 04/06/20 ESTER ARORA April 06, 2020 15:52
[2020-04-06 15:54] LABS: BILIRUBIN,URINE NEGATIVE (NEGATIVE); CLARITY,URINE CLEAR; COLOR,URINE YELLOW; GLUCOSE, URINE (UA) NEGATIVE (NEGATIVE); KETONES,URINE NEGATIVE (NEGATIVE); LEUKOCYTE ESTERASE ,URINE 1+ (NEGATIVE); NITRITE,URINE NEGATIVE (NEGATIVE); PH,URINE 7.5 (5-9); PROTEIN,URINE NEGATIVE (NEGATIVE)
--- NOTE | 2020-04-06 15:55 | NUR ---
This nurse asked pt if pt was okay as pt seemed sad. Pt would not make eye contact. Pt hesitated as if going to say something but then stated everything was fine. This nurse assured pt that pt could talk to this nurse about anything that was going on. Pt nodded head in agreement.
[2020-04-06 16:03] LABS: BACTERIA,URINE FEW /HPF
[2020-04-06] MEDS ORDERED: ONDA4TAB11 PO (16:41)
[2020-04-06] MEDS ORDERED: METO5TAB75 PO (16:41)
[2020-04-06 16:50] VITALS: BP 117/67
== END 2020-04-06 16:55 | disposition home or self-care (01) ==
LOC: EDUNIT# 15:23 → ER 15:25
DX: R11.0 Nausea (principal); Z77.22 Contact with and (suspected) exposure to environmental tobacco smoke (acute) (chronic)
CPT/HCPCS: 81000; 84703; 99283

== ENCOUNTER → 2020-09-21 | Outpatient (CLI) | payer MEDICAID ==
[~2020-09-21] MED LIST changes: +METO5TAB75 PO; +ONDA4TAB11 PO
--- NOTE | 2020-09-21 16:24 | Diagnostic Imaging Report ---
INDICATION: patient, survey. TECHNIQUE: Multiple real-time grayscale images were obtained over the gravid uterus. COMPARISON: None during this . FINDINGS: A single live intrauterine fetus is seen measuring 19 weeks 1 day in size. The fetus is in cephalic presentation. Placenta is anterior with no evidence of previa. Cervical length is 3 cm. heart rate is 158 bpm. Maternal adnexa show no free fluid. survey showed normal-appearing kidneys and bladder. Normal-appearing stomach was seen. Normal-appearing intracranial ventricles are seen. Four-chambered heart view appeared unremarkable. spine appears unremarkable. Patient does have a three-vessel cord, but the cord insertion was not well visualized due to position. Biometrical measurements are as follows: Biparietal 4.4 cm, age 19 weeks 3 days. Head circumference 16.6 cm, age 19 weeks 2 days. Abdominal circumference 13.3 cm, age 18 weeks 6 days. Femur length 2.8 cm, age 18 weeks 4 days. Sonographic estimate age: 19 weeks 1 days. Sonographic estimated date of delivery: 02/14/2021. Estimated Weight: 254 gm (+/- 37 gm). LMP percentile: 46%. heart rate: 158 beats per minute. number: 1 of 1. IMPRESSION: Single live intrauterine fetus measuring 19 weeks 1 day in size. There is no detectable abnormality, although the cord insertion was not well seen due to position. Consider follow-up on limited basis if clinically warranted. Dictated by: Dictated on workstation # [id number]
== END ==
LOC: RAD 11:20
PROVIDERS: ATTEND Obstetrics & Gynecology
DX: Z34.92 Encounter for supervision of normal pregnancy, unspecified, second trimester (principal); Z3A.19 19 weeks gestation of pregnancy
CPT/HCPCS: 76805

== ENCOUNTER 2021-10-28 16:13 | Emergency (ER) | payer MEDICAID ==
[~2021-10-28] VITALS: Ht 152 cm; Wt 45.3 kg
[2021-10-28] MEDS ORDERED: ACETAMINOPHEN 325 MG TABLET PO ONE (17:00)
--- NOTE | 2021-10-28 17:23 | ED Respiratory ---
General Chief Complaint: Fever-Adult/Adol Stated Complaint: COUGH, FEVER Nursing Triage Note: PT PRESENTS TO ED WITH COMPLAINTS OF COUGH X 4 DAYS AND FEVER. PT REPORTS SHE LAST TOOK TYLENOL LAST NIGHT. Source: patient Exam Limitations: no limitations History of Present Illness Date Seen by Provider: Oct 28, 2021 Time Seen by Provider: 16:30 Initial Comments Patient is a 21-year-old female presents ED with cough, fever over the past 4 da ys. Denies of any shortness of breath, wheezing. No history of asthma. She reports subjective fever at home. She states she feels warm with fatigue, weakness. Patient febrile on arrival. Denies vomiting, diarrhea, urinary symptoms, sore throat, ear pain. Patient appears in no acute distress. No one else at home with similar symptoms. Has been taken Tylenol at home with last use last night. Patient slightly tachycardic. Allergies and Home Medications Allergies Coded Allergies: No Known Drug Allergies (Unverified , 12/31/10) Patient Home Medication List Home Medication List Reviewed: Yes Amoxicillin (Amoxicillin) 500 Mg Capsule, 500 MG PO BID Prescribed by: STEFANI GARNICA on 10/28/21 1750 Famotidine (Pepcid) 20 Mg Tablet, 20 MG PO BID Prescribed by: MIGUEL DELONG on 02/26/202228 Metoclopramide HCl (Reglan) 5 Mg Tablet, 5 MG PO AC Prescribed by: ESTER ARORA on 04/06/20 1641 Ondansetron (Ondansetron Odt) 4 Mg Tab.rapdis, 4 MG SL Q4H PRN for NAUSEA/VOMITING Prescribed by: MIGUEL DELONG on 02/26/202228 Ondansetron (Ondansetron Odt) 4 Mg Tab.rapdis, 4 MG PO Q6H PRN for NAUSEA/VOMITING Prescribed by: ESTER ARORA on 04/06/20 1641 Review of Systems Review of Systems Constitutional: chills; No dizziness; fever, malaise EENTM: No ear pain, No eye pain, No throat pain, No throat swelling Respiratory: cough; No hemoptysis, No short of breath, No wheezing Cardiovascular: No chest pain Gastrointestinal: No abdominal pain, No constipation, No diarrhea Genitourinary: No dysuria, No frequency Musculoskeletal: No back pain, No joint pain, No joint swelling, No muscle pain Skin: No change in color, No change in hair/nails All Other Systems Reviewed Negative Unless Noted: Yes Past Cqmrlgn-Ownknm-Yesisj Hx Patient Social History Tobacco Use?: No Substance use?: No Alcohol Use?: No Pt feels they are or have been: No Immunizations Up To Date Tetanus Booster (TDap): Less than 5yrs PED Vaccines UTD: Yes Seasonal Allergies Seasonal Allergies: No Past Medical History Surgeries: No Respiratory: No Cardiac: No Neurological: No Genitourinary: No Gastrointestinal: No Musculoskeletal: No Endocrine: No HEENT: No Cancer: No Psychosocial: No Integumentary: No Blood Disorders: No Family Medical History No Pertinent Family Hx Physical Exam Vital Signs - First Documented 10/28/21 16:53 Temp 38.9 Pulse 139 Resp 18 B/P (MAP) 98/72 (81) Pulse Ox 99 Capillary Refill : Less Than 3 Seconds Height: 5'0" Weight: 90lbs. oz. 40.608404er; 19.00 BMI Method:Estimated General Appearance: WD/WN, no apparent distress Eyes: Bilateral Eye Normal Inspection, Bilateral Eye PERRL, Bilateral Eye EOMI HEENT: PERRL/EOMI, normal ENT inspection, TMs normal, other (Oropharynx with erythema with mild swelling without exudate.) Neck: non-tender, full range of motion, supple, normal inspection Respiratory: chest non-tender, lungs clear, normal breath sounds Cardiovascular: no edema, tachycardia Gastrointestinal: normal bowel sounds, non tender, soft Extremities: normal range of motion, non-tender, normal inspection Neurologic/Psychiatric: regulatory affairs portfolio leader II-XII nml as tested, no motor/sensory deficits, alert, normal mood/affect, oriented x 3 Skin: normal color Progress/Results/Core Measures Suspected Sepsis SIRS Temperature: Pulse: 139 Respiratory Rate: 18 Blood Pressure 98 /72 Mean: 81 Results/Orders Lab Results Laboratory Tests Test 10/28/21 16:40 Range/Units Influenza Type A (RT-PCR) Not Detected Not Detecte Influenza Type B (RT-PCR) Not Detected Not Detecte SARS-CoV-2 RNA (RT-PCR) Not Detected Not Detecte My Orders Orders - VIOLA DENNIS Covid 19 Inhouse Test (10/28/21 16:46) Acetaminophen Tablet/Caplet (Tylenol T (10/28/21 17:00) Influenza A And B By Pcr (10/28/21 16:40) Medications Given in ED Current Medications Medications Dose Ordered Sig/Radha Route Start Time Stop Time Status Last Admin Dose Admin Acetaminophen 650 mg ONCE ONCE PO 10/28/21 17:00 10/28/21 17:01 DC 10/28/21 17:06 650 MG Vital Signs/I&O 10/28/21 10/28/21 16:53 18:01 Temp 38.9 37.8 Pulse 139 120 Resp 18 18 B/P (MAP) 98/72 (81) 100/54 Pulse Ox 99 98 Capillary Refill : Less Than 3 Seconds Blood Pressure Mean: 81 Departure Communication (Admissions) Patient influenza and Covid negative. Oropharynx with mild erythema and swelling without exudate. She reports mild sore throat but the cough is more of a concern. Her lung sounds were clear bilateral. No wheezing. Exam otherwise benign. No abdominal tenderness on palpation. She denies chest pain. Febrile here. Patient Was given Tylenol, with improvement of fever and her heart rate. Patient has no abdominal tenderness. Denies of any urinary symptoms. During most of the exam and obtaining history patient was playing on her phone. Since patient refused waiting for results of throat swab I will treat prophylactically at this time. Patient does appear ill but nontoxic. She remains slightly tachycardic likely secondary to febrile. Tolerating p.o. fluids. No vomiting or diarrhea. Return precautions were discussed with patient. Impression Primary Impression: URI (upper respiratory infection) Disposition: HOME, SELF-CARE Condition: Improved Departure-Patient Inst. Decision time for Depature: 17:49 Referrals: NO,LOCAL PHYSICIAN (PCP) Primary Care Physician Patient Instructions: Upper Respiratory Infection ED Scripts Amoxicillin (Amoxicillin) 500 Mg Capsule 500 MG PO BID for 10 Days, #20 CAP Prov: VIOLA DENNIS 10/28/21 VIOLA DENNIS Oct 28, 2021 17:23
[2021-10-28] MEDS ORDERED: AMOX500C2 PO (17:50)
[2021-10-28 18:01] VITALS: BP 100/54
== END 2021-10-28 18:01 | disposition home or self-care (01) ==
LOC: EDUNIT# 16:13 → ER 16:15
DX: J06.9 Acute upper respiratory infection, unspecified (principal); R00.0 Tachycardia, unspecified; Z20.822 Contact with and (suspected) exposure to COVID-19
CPT/HCPCS: 87636; 99283

== ENCOUNTER → 2022-03-27 | Outpatient (CLI) | payer MEDICAID ==
[~2022-03-27] MED LIST changes: +AMOX500C2 PO
--- NOTE | 2022-03-27 17:35 | Diagnostic Imaging Report ---
INDICATION: Routine care TECHNIQUE: Multiple real-time grayscale images were obtained over the gravid uterus. COMPARISON: None FINDINGS: There is a single live intrauterine gestation initially in variable presentation. The cervix is measured at 3.4 cm in length. No funneling is seen. The placenta is anterior without evidence of previa. The heart rate measures 135 BPM. The amniotic fluid is normal with a vertical pocket seen measuring 4.9 cm. A four-chamber heart is suboptimally seen. The stomach is seen. Both upper extremities are visible. The lateral ventricles are seen. The cerebellum and cisterna magna are seen. The bladder is seen. There are 2 umbilical arteries consistent with a three-vessel cord. The cord insertion is seen. The kidneys are seen. The nose and lips are seen. The profile is seen. The right ventricular and left ventricular outflow tracks are seen. The spine is suboptimally visualized due to lie. Biometrical measurements are as follows: Biparietal 4.92 cm, age 21 weeks 0 days. Head circumference 17.90 cm, age 20 weeks 3 days. Abdominal circumference 15.48 cm, age 20 weeks 5 days. Femur length 3.20 cm, age 20 weeks 0 days. Sonographic estimate age: 20 weeks 4 days. Sonographic estimated date of delivery: 08/10/2022. Estimated Weight: 349 gm (+/- 51 gm). LMP percentile: 41%. heart rate: 135 beats per minute. number: 1 of 1. IMPRESSION: 1. Single live intrauterine gestation measuring at 20 weeks and 4 days, which is within range of the clinical dates. 2. No abnormality seen on anatomic survey. The spine and four-chamber heart are suboptimally visualized. Dictated by: Dictated on workstation # [id number]
== END ==
LOC: RAD 15:15
PROVIDERS: ATTEND Obstetrics & Gynecology
DX: Z34.02 Encounter for supervision of normal first pregnancy, second trimester (principal); Z3A.20 20 weeks gestation of pregnancy
CPT/HCPCS: 76805

== ENCOUNTER 2022-05-06 11:57 | Outpatient (RCR) | payer MEDICAID ==
[2022-05-06] MEDS ORDERED: RT-ALBUTEROL SULF 2.5 MG/3 ML PRE-MIX VIAL IH PRN (12:15)
[2022-05-06] MEDS ORDERED: diphenhydrAMINE 50 MG/ML INJ (BENADRYL) IV PRN (12:15)
[2022-05-06] MEDS ORDERED: IRON DEXTRAN 25 MG/NS 6.25 ML TOTAL VOLUME IV NR ×3 (12:15)
[2022-05-06] MEDS ORDERED: HYDROCORTISONE 100 MG/2 ML (Solu-CORTEF) VIAL IV PRN (12:30)
[2022-05-06] MEDS ORDERED: EPINEPHrine INJECTION 1 MG/ML AMP IM PRN (12:30)
[2022-05-06 12:41] VITALS: BP 111/65
[2022-05-06] MEDS ORDERED: IRON DEXTRAN 1,000 MG/NS 250 ML IVPB IV ONE ×2 (12:45)
[2022-05-06 14:09] VITALS: BP 100/69
== END 2022-05-30 | disposition home or self-care (01) ==
LOC: SDC 11:57
PROVIDERS: ATTEND Obstetrics & Gynecology
DX: D64.9 Anemia, unspecified (principal)
CPT/HCPCS: 96365

== ENCOUNTER 2022-08-07 05:55 | Inpatient (IN) | payer MEDICAID ==
[2022-08-07] VITALS (70 sets, daily range): BP systolic 95–129; BP diastolic 53–80
[~2022-08-07] VITALS: Ht 152.4 cm; Wt 52.8 kg
[2022-08-07] MEDS ORDERED: OXYTOCIN PRE-MIX DRIP 500 ML IV SCH ×3 (07:30→19:15)
[2022-08-07] MEDS ORDERED: LIDOCAINE/EPI 2% 1:200,00 (XYLOCAINE) 10 ML VIAL INJ PRN (07:30)
[2022-08-07] MEDS ORDERED: MINERAL OIL 30 ML UDC TOP PRN (07:30)
--- NOTE | 2022-08-07 07:37 | History & Physical-OB ---
BARRON COONEY 08/07/22 0737: OB - Chief Complaint & HPI Date/Time Date of Admission: Date of Admission: Aug 07, 2022 at 05:55 Date seen by a Provider: Aug 07, 2022 Time Seen by a Provider: 07:35 Chief Complaint/History OB-Reason for Admission/Chief: Induction of Labor Hx : 2 Hx Para: 1 Gestational Age in Weeks: 39 Gestational Age in Days: 3 History of Labs RI RPR NR HBsAg NR HIV NR GC neg GBS neg Allergies and Home Medications Allergies Coded Allergies: No Known Drug Allergies (Unverified , 12/31/10) Patient Home Medication List Home Medication List Reviewed: Yes Amoxicillin (Amoxicillin) 500 Mg Capsule, 500 MG PO BID Prescribed by: STEFANI GARNICA on 10/28/21 175 Famotidine (Pepcid) 20 Mg Tablet, 20 MG PO BID Prescribed by: MIGUEL DELONG on 02/26/202228 Metoclopramide HCl (Reglan) 5 Mg Tablet, 5 MG PO AC Prescribed by: ESTER ARORA on 04/06/20 1641 Ondansetron (Ondansetron Odt) 4 Mg Tab.rapdis, 4 MG SL Q4H PRN for NAUSE A/VOMITING Prescribed by: MIGUEL DELONG on 02/26/202228 Ondansetron (Ondansetron Odt) 4 Mg Tab.rapdis, 4 MG PO Q6H PRN for NAUSEA/VOMITING Prescribed by: ESTER ARORA on 04/06/20 1641 OB - History Hx of Present Care: Yes Ultrasounds: Normal mid trimester US Obstetrical Complications: None Medical Complications: None Delivery History Hx Blood Disorders: No Patient Past Medical History none Social History/Family History 2nd Hand Smoke Exposure: Yes Immunizations Tetanus Booster (TDap): Less than 5yrs OB - Admission Exam Physical Exam HEENT: NCAT Abdomen: Gravid Extremities: Normal Reflexes: Normal Cervical Dilatation: 4cm Effacement: 75% Membranes: Ruptured Amniotic Fluid: Clear Heart Rate: 120's (110-115's) Contractions on Admission: >10 Minutes Apart Intensity: Mild Moore Scoring Tool (Modified) Effacement (%): 51-79% (2) OB - Assessment/Plan/Diagnosis Assessment Assessment: induction of labor Admission Dx @ 39 weeks 3 days Active labor Admission Status: Inpatient Order (span 2 midnights) Reason for Inpatient Admission: Induction of labor Plan Plan: Expectant Management, Induction Induction Method: per Pitocin Protocol OSIEL MICHELLE DO 08/07/22 1319: Allergies and Home Medications Allergies Coded Allergies: No Known Drug Allergies (Unverified , 12/31/10) Patient Home Medication List Amoxicillin (Amoxicillin) 500 Mg Capsule, 500 MG PO BID Prescribed by: STEFANI GARNICA on 10/28/21 1750 Famotidine (Pepcid) 20 Mg Tablet, 20 MG PO BID Prescribed by: MIGUEL DELONG on 02/26/20 222 Metoclopramide HCl (Reglan) 5 Mg Tablet, 5 MG PO AC Prescribed by: ESTER ARORA on 04/06/20 1641 Ondansetron (Ondansetron Odt) 4 Mg Tab.rapdis, 4 MG SL Q4H PRN for NAUSEA/VOMITING Prescribed by: MIGUEL DELONG on 02/26/202228 Ondansetron (Ondansetron Odt) 4 Mg Tab.rapdis, 4 MG PO Q6H PRN for NAUSEA/VOMITING Prescribed by: ESTER ARORA on 04/06/20 1641 OB - Assessment/Plan/Diagnosis Plan Other Plan Verification and Attestation of Medical Student E/M Service A medical student performed and documented this service in my presence. I reviewed and verified all information documented by the medical student and made modifications to such information, when appropriate. I personally performed the physical exam and medical decision making. Osiel Michelle Aug 07, 2022,13:19 BARRON COONEY Aug 07, 2022 07:37 OSIEL MICHELLE DO Aug 07, 2022 13:19
[2022-08-07] MEDS: D5 LR IV SOLUTION 1,000 ML IV SCH ×2 (07:49→12:38)
[2022-08-07 08:04] LABS: BASOPHILS # (AUTO) 0.1 10^3/uL (0.0-0.1); BASOPHILS % (AUTO) 0 % (0-10); EOSINOPHILS # (AUTO) 0.2 10^3/uL (0.0-0.3); EOSINOPHILS % (AUTO) 1 % (0-10); HEMATOCRIT 37 % (35-52); HEMOGLOBIN 12.1 g/dL (11.5-16.0); LYMPHOCYTES # (AUTO) 1.9 10^3/uL (1.0-4.0); LYMPHOCYTES % (AUTO) 15 % (12-44); MEAN CORPUSCULAR HEMOGLOBIN 27 pg (25-34); MEAN CORPUSCULAR HGB CONC 33 g/dL (32-36); MEAN CORPUSCULAR VOLUME 83 fL (80-99); MEAN PLATELET VOLUME 11.2 fL (9.0-12.2); MONOCYTES # (AUTO) 0.7 10^3/uL (0.0-1.0); MONOCYTES % (AUTO) 5 % (0-12); NEUTROPHILS % (AUTO) 77 % (42-75); PLATELET COUNT 207 10^3/uL (130-400); WHITE BLOOD COUNT 12.9 10^3/uL (4.3-11.0)
[2022-08-07 08:04] LABS: BILIRUBIN,URINE NEGATIVE (NEGATIVE); CLARITY,URINE CLEAR; COLOR,URINE YELLOW; GLUCOSE, URINE (UA) NEGATIVE (NEGATIVE); KETONES,URINE NEGATIVE (NEGATIVE); LEUKOCYTE ESTERASE ,URINE 2+ (NEGATIVE); NITRITE,URINE NEGATIVE (NEGATIVE); PROTEIN,URINE NEGATIVE (NEGATIVE)
[2022-08-07] MEDS ORDERED: fentaNYL 2 mcg/ml BUPIVA 0.125 100 ML ONE (08:07)
[2022-08-07 08:15] LABS: BACTERIA,URINE TRACE /HPF; WBC,URINE 25-50 /HPF
[2022-08-07] MEDS ORDERED: fentaNYL INJ 100 MCG/2 ML AMP ONE (09:16)
[2022-08-07] MEDS ORDERED: fentaNYL 2 mcg/ml BUPIVA 0.125 100 ML EPI SCH (13:15)
[2022-08-07] MEDS ORDERED: diphenhydrAMINE 50 MG/ML INJ (BENADRYL) IV PRN (13:15)
[2022-08-07] MEDS ORDERED: ONDANSETRON 4 MG/2 ML (SDV) Z0FRAN IV PRN (13:15)
[2022-08-07] MEDS ORDERED: METOCLOPRAMIDE INJ 10 MG/2 ML (REGLAN) IV PRN (13:15)
[2022-08-07] MEDS ORDERED: NALOXONE 0.4 MG/ML 1 ML (NARCAN) VIAL IV PRN ×2 (13:15)
[2022-08-07] MEDS ORDERED: LACTATED RINGERS 1,000 ML IV ONE (13:15)
[2022-08-07] MEDS: CATHETER FLUSH 10 ML SYR IV SCH (14:00)
[2022-08-07] MEDS ORDERED: TETANUS,DIPTH,PERTUSS P/F (BOOSTRIX) 0.5 ML VIAL IM ONE (18:15)
[2022-08-07] MEDS ORDERED: BENZOCAINE/MENTHOL (DERMOPLAST) 56 ML CAN TP PRN (18:15)
[2022-08-07] MEDS: IBUPROFEN 600 MG (MOTRIN) TAB PO SCH (18:31)
--- NOTE | 2022-08-07 19:59 | Discharge Inst-Women's Service ---
Discharge Inst-Women's Serv Depart Medication/Instructions New, Converted or Re-Newed RX: Transmitted to Pharmacy Final Diagnosis PPD 2 NVD Problems Reviewed?: Yes Consults/Follow Up Additional Follow Up: Yes Orders/Referrals Dr. Marcos in 6 weeks Activity Activity: Activity as Tolerated Driving Instructions: No Driving for 1 Week NO SMOKING: NO SMOKING Nothing Inside Vagina: No Douching, No [place], No Tampons Diet Discharge Diet: No Restrictions Symptoms to Report to : Bleeding Excessive, Pain Increased, Fever Over 101 Degrees F, Vaginal Bleeding Increase, Questions/Concerns SKYLER MARCOS DO Aug 07, 2022 19:59
--- NOTE | 2022-08-07 19:59 | OB Labor & Delivery Record ---
L&D History Date of Service Date of Service: Aug 07, 2022 History Expected Date of Delivery: Aug 11, 2022 Gestational Age in Weeks: 39 Hx : 2 Hx Para: 1 Complications Events: Routine care Operative Indications (Cesarea: N/A-Vaginal Delivery Intrapartal Events: None L&D Stage1 Stage One Onset of Labor - Date: Aug 07, 2022 Monitors and Tracing Monitor Mode: External Heart Rate: 115 Station: -1 Vital Signs VS - Last 72 Hours, by Label 08/07/22 08/07/22 08/07/22 08/07/22 07:49 08:15 08:20 08:35 Temp 36.6 Pulse 75 74 71 68 Resp 20 18 18 18 B/P (MAP) 119/70 (86) 114/71 (85) 116/71 (86) Pulse Ox 98 O2 Delivery Room Air Room Air Room Air Room Air 08/07/22 08/07/22 08/07/22 08/07/22 08:50 08:59 09:01 09:04 Temp 36.7 Pulse 78 92 93 80 Resp 18 18 18 18 B/P (MAP) 120/67 (84) 114/73 (87) 129/78 (95) 129/78 (95) Pulse Ox 100 100 100 100 O2 Delivery Room Air Room Air Room Air Room Air 08/07/22 08/07/22 08/07/22 08/07/22 09:09 09:13 09:16 09:20 Pulse 89 72 72 69 Resp 18 18 18 18 B/P (MAP) 113/66 (82) 116/75 (89) 122/80 (94) 117/75 (89) Pulse Ox 100 100 100 97 O2 Delivery Room Air Room Air Room Air Room Air 08/07/22 08/07/22 08/07/22 08/07/22 09:24 09:29 09:33 09:37 Pulse 72 64 71 70 Resp 18 18 18 18 B/P (MAP) 116/73 (87) 119/73 (88) 115/71 (86) 122/68 (86) Pulse Ox 97 96 97 98 O2 Delivery Room Air Room Air Room Air Room Air 08/07/22 08/07/22 08/07/22 08/07/22 09:41 09:45 09:50 09:53 Pulse 70 56 56 59 Resp 18 18 18 18 B/P (MAP) 114/66 (82) 112/68 (83) 123/59 (80) 98/54 (69) Pulse Ox 97 97 97 98 O2 Delivery Room Air Room Air Room Air Room Air 08/07/22 08/07/22 08/07/22 08/07/22 09:57 10:00 10:05 10:10 Pulse 56 56 54 54 Resp 18 18 18 18 B/P (MAP) 103/58 (73) 97/53 (68) 101/58 (72) 100/58 (72) Pulse Ox 100 100 100 100 O2 Delivery Room Air Non Rebreather Non Rebreather Non Rebreather O2 Flow Rate 10.00 10.00 10.00 08/07/22 08/07/22 08/07/22 08/07/22 10:12 10:17 10:20 10:25 Pulse 51 53 54 54 Resp 18 18 18 18 B/P (MAP) 101/53 (69) 97/56 (70) 101/55 (70) 104/55 (71) Pulse Ox 100 100 100 100 O2 Delivery Non Rebreather Non Rebreather Non Rebreather Non Rebreather O2 Flow Rate 10.00 10.00 10.00 10.00 08/07/22 08/07/22 08/07/22 08/07/22 10:30 10:45 11:00 11:15 Temp 36.6 Pulse 55 57 61 68 Resp 18 18 18 18 B/P (MAP) 95/54 (68) 116/66 (83) 114/65 (81) 110/57 (74) Pulse Ox 100 100 98 99 O2 Delivery Non Rebreather Non Rebreather Non Rebreather Room Air O2 Flow Rate 10.00 10.00 10.00 08/07/22 08/07/22 08/07/22 08/07/22 11:25 11:40 11:55 12:10 Pulse 73 61 65 61 Resp 18 18 18 18 B/P (MAP) 105/61 (76) 103/59 (74) 105/55 (72) 108/62 (77) Pulse Ox 100 99 99 99 O2 Delivery Room Air Room Air Room Air Non Rebreather O2 Flow Rate 10.00 08/07/22 08/07/22 08/07/22 08/07/22 12:30 12:45 13:00 13:15 Pulse 69 69 72 82 Resp 18 18 18 18 B/P (MAP) 128/62 (84) 117/63 (81) 112/58 (76) 109/66 (80) Pulse Ox 99 100 100 100 O2 Delivery Non Rebreather Non Rebreather Non Rebreather Non Rebreather O2 Flow Rate 10.00 10.00 10.00 10.00 08/07/22 08/07/22 08/07/22 08/07/22 13:30 13:45 14:00 14:15 Pulse 76 89 96 68 Resp 18 18 18 18 B/P (MAP) 99/55 (70) 104/61 (75) 112/58 (76) 112/64 (80) Pulse Ox 100 100 99 100 O2 Delivery Non Rebreather Non Rebreather Non Rebreather Non Rebreather O2 Flow Rate 10.00 10.00 10.00 10.00 08/07/22 08/07/22 08/07/22 08/07/22 14:30 14:45 15:00 15:15 Temp 36.0 Pulse 83 62 75 58 Resp 18 18 18 18 B/P (MAP) 110/66 (81) 107/65 (79) 106/69 (81) 110/70 (83) Pulse Ox 100 100 100 100 O2 Delivery Non Rebreather Non Rebreather Non Rebreather Non Rebreather O2 Flow Rate 10.00 10.00 10.00 10.00 08/07/22 08/07/22 08/07/22 08/07/22 15:30 15:45 16:00 16:15 Pulse 63 89 73 80 Resp 18 18 18 18 B/P (MAP) 114/67 (83) 121/70 (87) 122/69 (86) 121/71 (88) Pulse Ox 100 100 100 100 O2 Delivery Non Rebreather Non Rebreather Non Rebreather Non Rebreather O2 Flow Rate 10.00 10.00 10.00 10.00 08/07/22 08/07/22 08/07/22 08/07/22 16:30 16:45 17:00 17:15 Temp 37.4 Pulse 68 75 96 99 Resp 18 18 18 18 B/P (MAP) 118/76 (90) 119/72 (88) 117/57 (77) 117/62 (80) Pulse Ox 100 100 100 100 O2 Delivery Non Rebreather Non Rebreather Non Rebreather Non Rebreather O2 Flow Rate 10.00 10.00 10.00 10.00 08/07/22 08/07/22 08/07/22 08/07/22 17:30 17:45 17:50 17:55 Temp 37.4 Pulse 87 75 129 89 Resp 18 18 18 18 B/P (MAP) 108/57 (74) 128/73 (91) 118/75 (89) 115/59 (77) Pulse Ox 100 100 100 100 O2 Delivery Non Rebreather Non Rebreather Room Air O2 Flow Rate 10.00 10.00 08/07/22 08/07/22 08/07/22 08/07/22 18:00 18:12 18:20 18:32 Temp 36.8 36.9 37.0 37.1 Pulse 82 85 89 104 Resp 18 18 18 18 B/P (MAP) 123/62 (82) 105/56 (72) 124/66 (85) 120/77 (91) Pulse Ox 100 O2 Delivery Room Air Room Air Room Air Room Air O2 Flow Rate 08/07/22 08/07/22 18:40 18:56 Temp 36.9 36.8 Pulse 82 74 Resp 18 18 B/P (MAP) 121/73 (89) 126/73 (90) O2 Flow Rate 10.00 Rupture of Membranes Spontaneous Ruture of Membrane: No Amniotic Membrane Rupture Time: 0800 Amniotic Membrane Fluid Desc.: Clear Vaginal Bleeding Description: Normal Show Induction/Anesthesia Epidural Cath Placement - Time: 0910 Progress/Notes Patient admitted for IOL, AROM performed pitocin started. She received an epidural and progressed to complete and + 2 station. L&D Stage2 Stage Two Stage II Date: Aug 07, 2022 Monitors and Tracing Monitor Mode: External Heart Rate: 115 Monitor Accelerations: Uniform Monitor Decelerations: Variable Usp Variability: Average (6-10) Short Term Variability: Present Position: Right Occiput Anterior Cord Descript/Complications Cord Vessel Description: 3 Vessels Delivery Type Delivery Method: Spontaneous Vaginal Anterior Shoulder: Left Episiotomy/Perineal Laceration Laceraction(s)/Extensions: Yes Episiotomy Description: None Condition of Infant Delivery 1 minute Comment: 9 5 minute Comment: 9 Notes Live male weight 6lbs 10 oz. Condition of Condition of Infant: Living Exam: No Observed Abnormalities Resuscitation Resuscitation: N/A - Spontaneous Resp L&D Stage3 Stage Three Stage III Date: Aug 07, 2022 Pictocin Pitocin Administration mu/min: 2 Pitocin ml/hr: 2 Pitocin Administration Comment: 30 mu wide open after delivery of placenta Placenta Delivery Placenta Delivery: Spontaneous Delivery Summary Summary Estimated blood loss (mL): 200 Attending at delivery: Skyler Marcos DO Condition of Delivery Examined: Cervix Examined, Uterus Explored Post Hemorrhage: No Condition of Mother stable Condition of Infant (s) stable SKYLER MARCOS DO Aug 07, 2022 19:59
[2022-08-07] MEDS ORDERED: DOCU100C37 PO (20:00)
[2022-08-07] MEDS ORDERED: IBUP-844 PO (20:00)
[2022-08-07] MEDS ORDERED: ACETAMINOPHEN 500 MG TAB (TYLENOL) PO PRN (20:00)
[2022-08-07] MEDS ORDERED: ACET-93 PO (20:00)
[2022-08-07] MEDS ORDERED: CATHETER FLUSH 10 ML SYR IV SCH (22:00)
[2022-08-08] MEDS: CATHETER FLUSH 10 ML SYR IV SCH (00:35)
[2022-08-08 01:08] VITALS: BP 105/50
[2022-08-08] MEDS: DOCUSATE SODIUM 100 MG (COLACE) CAP PO SCH ×2 (01:08→08:06)
[2022-08-08] MEDS: IBUPROFEN 600 MG (MOTRIN) TAB PO SCH ×3 (01:08→12:12)
[2022-08-08 04:25] VITALS: BP 104/52
[2022-08-08 06:10] LABS: BASOPHILS % (AUTO) 0 % (0-10); EOSINOPHILS # (AUTO) 0.1 10^3/uL (0.0-0.3); EOSINOPHILS % (AUTO) 1 % (0-10); HEMATOCRIT 33 % (35-52); HEMOGLOBIN 10.7 g/dL (11.5-16.0); LYMPHOCYTES # (AUTO) 2.1 10^3/uL (1.0-4.0); LYMPHOCYTES % (AUTO) 13 % (12-44); MEAN CORPUSCULAR HEMOGLOBIN 27 pg (25-34); MEAN CORPUSCULAR HGB CONC 33 g/dL (32-36); MEAN CORPUSCULAR VOLUME 84 fL (80-99); MEAN PLATELET VOLUME 11.7 fL (9.0-12.2); MONOCYTES # (AUTO) 0.9 10^3/uL (0.0-1.0); MONOCYTES % (AUTO) 6 % (0-12); NEUTROPHILS # (AUTO) 13.1 10^3/uL (1.8-7.8); NEUTROPHILS % (AUTO) 79 % (42-75); PLATELET COUNT 182 10^3/uL (130-400); WHITE BLOOD COUNT 16.4 10^3/uL (4.3-11.0)
--- NOTE | 2022-08-08 07:23 | Postpartum Progress Note ---
EROSBARRON 08/08/22 0723: Note Note Day # 1 Subjective: Patient is without complaints. Ambulating, voiding. Tolerating a regular diet without nausea or vomiting. Normal lochia. Pain is well controlled with oral pain medications. Bottle feeding without issue. Objective: VSS afebrile Physical Exam: General - Alert and oriented, no apparent distress Abdomen - Soft, appropriately tender to palpation, non-distended, fundus firm at umbilicus Extremities - no edema, negative Jan's bilaterally Assessment: post- day # 1, status post normal vaginal delivery. Recovering well, hemodynamically stable Plan: Routine care. Encourage breast feeding. Encourage ambulation. Ferrous sulfate supplementation. Plan for discharge today Vitals - Labs Vital Signs - I&O Vital Signs Date Time Temp Pulse Resp B/P (MAP) Pulse Ox O2 Delivery O2 Flow Rate FiO2 08/08/22 04:25 36.0 63 18 104/52 (69) 97 Room Air 08/08/22 01:08 36.6 88 18 105/50 (68) 97 Room Air 08/07/22 21:00 36.8 86 18 111/63 (79) 98 Room Air 08/07/22 20:00 36.8 90 18 121/67 (85) Room Air 08/07/22 19:30 37.0 96 18 123/73 (90) Room Air 08/07/22 19:04 85 18 121/63 (82) Room Air 08/07/22 18:56 36.8 74 18 126/73 (90) 08/07/22 18:40 36.9 82 18 121/73 (89) 10.00 08/07/22 18:32 37.1 104 18 120/77 (91) Room Air 08/07/22 18:20 37.0 89 18 124/66 (85) Room Air 08/07/22 18:12 36.9 85 18 105/56 (72) Room Air 08/07/22 18:00 36.8 82 18 123/62 (82) 100 Room Air 08/07/22 17:55 89 18 115/59 (77) 100 Room Air 08/07/22 17:50 129 18 118/75 (89) 100 Non Rebreather 10.00 08/07/22 17:45 37.4 75 18 128/73 (91) 100 08/07/22 17:30 87 18 108/57 (74) 100 Non Rebreather 10.00 08/07/22 17:15 99 18 117/62 (80) 100 Non Rebreather 10.00 08/07/22 17:00 96 18 117/57 (77) 100 Non Rebreather 10.00 08/07/22 16:45 75 18 119/72 (88) 100 Non Rebreather 10.00 08/07/22 16:30 37.4 68 18 118/76 (90) 100 Non Rebreather 10.00 08/07/22 16:15 80 18 121/71 (88) 100 Non Rebreather 10.00 08/07/22 16:00 73 18 122/69 (86) 100 Non Rebreather 10.00 08/07/22 15:45 89 18 121/70 (87) 100 Non Rebreather 10.00 08/07/22 15:30 63 18 114/67 (83) 100 Non Rebreather 10.00 08/07/22 15:15 58 18 110/70 (83) 100 Non Rebreather 10.00 08/07/22 15:00 75 18 106/69 (81) 100 Non Rebreather 10.00 08/07/22 14:45 62 18 107/65 (79) 100 Non Rebreather 10.00 08/07/22 14:30 36.0 83 18 110/66 (81) 100 Non Rebreather 10.00 08/07/22 14:15 68 18 112/64 (80) 100 Non Rebreather 10.00 08/07/22 14:00 96 18 112/58 (76) 99 Non Rebreather 10.00 08/07/22 13:45 89 18 104/61 (75) 100 Non Rebreather 10.00 08/07/22 13:30 76 18 99/55 (70) 100 Non Rebreather 10.00 08/07/22 13:15 82 18 109/66 (80) 100 Non Rebreather 10.00 08/07/22 13:00 72 18 112/58 (76) 100 Non Rebreather 10.00 08/07/22 12:45 69 18 117/63 (81) 100 Non Rebreather 10.00 08/07/22 12:30 69 18 128/62 (84) 99 Non Rebreather 10.00 08/07/22 12:10 61 18 108/62 (77) 99 Non Rebreather 10.00 08/07/22 11:55 65 18 105/55 (72) 99 Room Air 08/07/22 11:40 61 18 103/59 (74) 99 Room Air 08/07/22 11:25 73 18 105/61 (76) 100 Room Air 08/07/22 11:15 68 18 110/57 (74) 99 Room Air 08/07/22 11:00 36.6 61 18 114/65 (81) 98 Non Rebreather 10.00 08/07/22 10:45 57 18 116/66 (83) 100 Non Rebreather 10.00 08/07/22 10:30 55 18 95/54 (68) 100 Non Rebreather 10.00 08/07/22 10:25 54 18 104/55 (71) 100 Non Rebreather 10.00 08/07/22 10:20 54 18 101/55 (70) 100 Non Rebreather 10.00 08/07/22 10:17 53 18 97/56 (70) 100 Non Rebreather 10.00 08/07/22 10:12 51 18 101/53 (69) 100 Non Rebreather 10.00 08/07/22 10:10 54 18 100/58 (72) 100 Non Rebreather 10.00 08/07/22 10:05 54 18 101/58 (72) 100 Non Rebreather 10.00 08/07/22 10:00 56 18 97/53 (68) 100 Non Rebreather 10.00 08/07/22 09:57 56 18 103/58 (73) 100 Room Air 08/07/22 09:53 59 18 98/54 (69) 98 Room Air 08/07/22 09:50 56 18 123/59 (80) 97 Room Air 08/07/22 09:45 56 18 112/68 (83) 97 Room Air 08/07/22 09:41 70 18 114/66 (82) 97 Room Air 08/07/22 09:37 70 18 122/68 (86) 98 Room Air 08/07/22 09:33 71 18 115/71 (86) 97 Room Air 08/07/22 09:29 64 18 119/73 (88) 96 Room Air 08/07/22 09:24 72 18 116/73 (87) 97 Room Air 08/07/22 09:20 69 18 117/75 (89) 97 Room Air 08/07/22 09:16 72 18 122/80 (94) 100 Room Air 08/07/22 09:13 72 18 116/75 (89) 100 Room Air 08/07/22 09:09 89 18 113/66 (82) 100 Room Air 08/07/22 09:04 80 18 129/78 (95) 100 Room Air 08/07/22 09:01 36.7 93 18 129/78 (95) 100 Room Air 08/07/22 08:59 92 18 114/73 (87) 100 Room Air 08/07/22 08:50 78 18 120/67 (84) 100 Room Air 08/07/22 08:35 68 18 116/71 (86) Room Air 08/07/22 08:20 71 18 114/71 (85) Room Air 08/07/22 08:15 74 18 119/70 (86) Room Air 08/07/22 07:49 36.6 75 20 98 Room Air I & O 08/08/22 07:00 Intake Total 2000 ml Balance 2000 ml Labs Laboratory Tests 08/07/22 07:40: White Blood Count 12.9H, Red Blood Count 4.45, Hemoglobin 12.1, Hematocrit 37, Mean Corpuscular Volume 83, Mean Corpuscular Hemoglobin 27, Mean Corpuscular Hemoglobin Concent 33, Red Cell Distribution Width 17.1H, Platelet Count 207, Mean Platelet Volume 11.2, Immature Granulocyte % (Auto) 1, Neutrophils (%) (Au to) 77H, Lymphocytes (%) (Auto) 15, Monocytes (%) (Auto) 5, Eosinophils (%) (Auto) 1, Basophils (%) (Auto) 0, Neutrophils # (Auto) 10.0H, Lymphocytes # (Auto) 1.9, Monocytes # (Auto) 0.7, Eosinophils # (Auto) 0.2, Basophils # (Auto) 0.1, Immature Granulocyte # (Auto) 0.2H 08/08/22 05:12: White Blood Count 16.4H, Red Blood Count 3.92, Hemoglobin 10.7L, Hematocrit 33L, Mean Corpuscular Volume 84, Mean Corpuscular Hemoglobin 27, Mean Corpuscular Hemoglobin Concent 33, Red Cell Distribution Width 16.9H, Platelet Count 182, M charlette Platelet Volume 11.7, Immature Granulocyte % (Auto) 1, Neutrophils (%) (Auto) 79H, Lymphocytes (%) (Auto) 13, Monocytes (%) (Auto) 6, Eosinophils (%) (Auto) 1, Basophils (%) (Auto) 0, Neutrophils # (Auto) 13.1H, Lymphocytes # (Auto) 2.1, Monocytes # (Auto) 0.9, Eosinophils # (Auto) 0.1, Basophils # (Auto) 0.0, Immature Granulocyte # (Auto) 0.2H OSIEL MARCOS DO 08/08/22 1317: Note Note Verification and Attestation of Medical Student E/M Service A medical student performed and documented this service in my presence. I reviewed and verified all information documented by the medical student and made modifications to such information, when appropriate. I personally performed the physical exam and medical decision making. Osiel Marcos Aug 08, 2022,13:17 BARRON COONEY Aug 08, 2022 07:23 OSIEL MARCOS DO Aug 08, 2022 13:17
[2022-08-08 08:00] VITALS: BP 116/74
--- NOTE | 2022-08-08 10:04 | Anesthesia-Regional Post-Op ---
Regional Patient Condition Mental Status: Alert, Oriented x3 Circulation: Same as Pre-Op Headache: Absent Sensation: Full Recovery Motor Block: Absent Post Op Complications Complications None Follow Up Care/Instructions Patient Instructions None needed. Anesthesia/Patient Condition Patient is doing well, no complaints, stable vital signs, no apparent adverse anesthesia problems. No complications reported per nursing. ERICA BOYD CRNA Aug 08, 2022 10:04
[2022-08-08 12:05] VITALS: BP 120/58
== END 2022-08-08 14:05 | disposition home or self-care (01) | DRG 807 ==
LOC: LDRP 05:55
PROVIDERS: ADMIT Obstetrics & Gynecology; ATTEND Obstetrics & Gynecology
PROC: 10E0XZZ Delivery of Products of Conception, External Approach (ICD-10-PCS; principal; 2022-08-07)
PROC: 10907ZC Drainage of Amniotic Fluid, Therapeutic from Products of Conception, Via Natural or Artificial Opening (ICD-10-PCS; 2022-08-07)
PROC: 3E033VJ Introduction of Other Hormone into Peripheral Vein, Percutaneous Approach (ICD-10-PCS; 2022-08-07)
PROC: 0W8NXZZ Division of Female Perineum, External Approach (ICD-10-PCS; 2022-08-07)
DX: O80 Encounter for full-term uncomplicated delivery (principal); Z37.0 Single live birth; Z3A.39 39 weeks gestation of pregnancy
CPT/HCPCS: 36415; 81000; 85025; 86850; 86900; 86901; 87088

== ENCOUNTER 2023-03-08 15:39 | Emergency (ER) | payer OTHER, MEDICAID ==
[~2023-03-08] VITALS: Ht 154 cm; Wt 60.0 kg
[~2023-03-08 15:39] MED LIST changes: +ACET-93 PO; +DOCU100C37 PO; +IBUP-844 PO
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
[2023-03-08] MEDS ORDERED: IBUPROFEN 600 MG (MOTRIN) TAB PO ONE (16:00)
--- NOTE | 2023-03-08 16:18 | Diagnostic Imaging Report ---
HISTORY: Left ankle pain. TECHNIQUE: 3 views of the left ankle. COMPARISON: None. FINDINGS: No acute fracture or dislocation is seen in the left ankle. Alignment is normal and joint spaces are preserved. IMPRESSION: No acute osseous abnormality is seen in the left ankle. Dictated by: Dictated on workstation # [id number]
[2023-03-08 16:57] VITALS: BP 115/69
[2023-03-09] MEDS ORDERED: IBUP-1773 PO (19:06)
== END 2023-03-08 16:57 | disposition home or self-care (01) ==
LOC: EDUNIT# 15:39 → ER 15:41
DX: S93.402A Sprain of unspecified ligament of left ankle, initial encounter (principal); S80.212A Abrasion, left knee, initial encounter; Z28.310 Unvaccinated for COVID-19; V89.2XXA Person injured in unspecified motor-vehicle accident, traffic, initial encounter; X50.1XXA Overexertion from prolonged static or awkward postures, initial encounter; Y92.410 Unspecified street and highway as the place of occurrence of the external cause
CPT/HCPCS: 73610

== ENCOUNTER 2023-03-09 18:01 | Emergency (ER) | payer OTHER, MEDICAID ==
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
[2023-03-09] MEDS ORDERED: IBUPROFEN TABLET 200 MG TAB PO ONE (18:30)
[2023-03-09] MEDS ORDERED: IBUP-1773 PO (19:06)
[2023-03-09 19:11] VITALS: BP 116/79
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
== END 2023-03-09 19:11 | disposition home or self-care (01) ==
LOC: EDUNIT# 18:01 → ER 18:04
DX: M25.512 Pain in left shoulder (principal); M25.572 Pain in left ankle and joints of left foot; Z28.310 Unvaccinated for COVID-19; V89.2XXA Person injured in unspecified motor-vehicle accident, traffic, initial encounter; Y92.410 Unspecified street and highway as the place of occurrence of the external cause
CPT/HCPCS: 73030

== ENCOUNTER 2023-10-16 19:21 | Emergency (ER) | payer MEDICAID ==
[~2023-10-16] VITALS: Ht 165 cm; Wt 45.3 kg
[~2023-10-16 19:21] MED LIST changes: +IBUP-1773 PO
[2023-10-16 19:51] LABS: BASOPHILS # (AUTO) 0.1 10^3/uL (0.0-0.1); BASOPHILS % (AUTO) 1 % (0-10); EOSINOPHILS # (AUTO) 0.2 10^3/uL (0.0-0.3); EOSINOPHILS % (AUTO) 1 % (0-10); HEMATOCRIT 40 % (35-52); HEMOGLOBIN 13.3 g/dL (11.5-16.0); LYMPHOCYTES # (AUTO) 2.1 10^3/uL (1.0-4.0); LYMPHOCYTES % (AUTO) 16 % (12-44); MEAN CORPUSCULAR HEMOGLOBIN 29 pg (25-34); MEAN CORPUSCULAR HGB CONC 33 g/dL (32-36); MEAN CORPUSCULAR VOLUME 88 fL (80-99); MEAN PLATELET VOLUME 10.2 fL (9.0-12.2); MONOCYTES # (AUTO) 0.6 10^3/uL (0.0-1.0); MONOCYTES % (AUTO) 4 % (0-12); NEUTROPHILS # (AUTO) 10.1 10^3/uL (1.8-7.8); NEUTROPHILS % (AUTO) 78 % (42-75); PLATELET COUNT 283 10^3/uL (130-400)
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
[2023-10-16] MEDS ORDERED: NS IV 500 ML 500 ML IV ONE (20:00)
[2023-10-16 20:01] LABS: BACTERIA,URINE FEW /HPF; BILIRUBIN,URINE NEGATIVE (NEGATIVE); CLARITY,URINE CLEAR; COLOR,URINE YELLOW; GLUCOSE, URINE (UA) NEGATIVE (NEGATIVE); KETONES,URINE NEGATIVE (NEGATIVE); LEUKOCYTE ESTERASE ,URINE 2+ (NEGATIVE); NITRITE,URINE NEGATIVE (NEGATIVE); PH,URINE 8.5 (5-9); PROTEIN,URINE 1+ (NEGATIVE); SQUAMOUS EPITHELIAL CELL,UR 0-2 /HPF; WBC,URINE 25-50 /HPF
[2023-10-16 20:11] LABS: ALANINE AMINOTRANSFERASE 15 U/L (0-55); ALBUMIN 4.7 GM/DL (3.2-4.5); ALKALINE PHOSPHATASE 68 U/L (40-136); BILIRUBIN,TOTAL 0.3 MG/DL (0.1-1.0); BUN/CREATININE RATIO 8; CALCIUM 9.7 MG/DL (8.5-10.1); CARBON DIOXIDE 24 MMOL/L (21-32); CHLORIDE 105 MMOL/L (98-107); CREATININE SERUM 0.84 MG/DL (0.60-1.30); GFR ESTIMATED 100; GLUCOSE 112 MG/DL (70-105); POTASSIUM 3.7 MMOL/L (3.6-5.0); SODIUM 140 MMOL/L (135-145); TOTAL PROTEIN 7.9 GM/DL (6.4-8.2)
[2023-10-16] MEDS ORDERED: IOHEXOL 350 MG/ML 100 ML (OMNIPAQUE 350) VIAL IV ONE ×2 (20:30)
[2023-10-16] MEDS ORDERED: NS 100 ML (IVPB) BAG IV ONE ×2 (20:30)
--- NOTE | 2023-10-16 21:10 | Diagnostic Imaging Report ---
PROCEDURE: CT abdomen and pelvis with contrast, rule out appendicitis. TECHNIQUE: Multiple contiguous axial images were obtained through the abdomen and pelvis after the administration of intravenous contrast. All CT scans use one or more of the following dose optimizing techniques: automated exposure control, MA and/or KvP adjustment based on patient size and exam type or iterative reconstruction. INDICATION: Right lower quadrant abdominal pain. COMPARISON: None. FINDINGS: Lung bases are clear. The heart is normal in size. The liver demonstrates no focal lesion. The spleen appears normal. The pancreas is normal. The adrenal glands appear normal. The kidneys demonstrate no enhancing lesion or hydronephrosis. The bladder wall is thickened and irregular with surrounding edema. The uterus is retroflexed. The appendix is not seen but no secondary finding of appendicitis is appreciated. There is a small amount of free fluid in the pelvis. There is a dominant left ovarian follicle measuring 1.8 cm in size. No distended loop of bowel is seen. There is no large collection of free air. There are few mildly prominent lymph nodes in the right lower abdomen. No acute osseous abnormality is seen. IMPRESSION: 1. Wall thickening of the bladder, concerning for infection, please correlate with urinalysis. No CT finding of pyelonephritis. 2. The appendix is not seen but no secondary finding of appendicitis is identified. There are mildly prominent right lower quadrant lymph nodes which can be seen with mesenteric adenitis. 3. Small amount of free fluid. Dictated by: Dictated on workstation # [id number]
[2023-10-16] MEDS ORDERED: cefTRIAXone IV/IM 1,000 MG in NS (IVPB) 50 ML 50 ML IV STA (21:30)
[2023-10-16] MEDS ORDERED: CEPH500T PO (21:35)
[2023-10-16 21:59] VITALS: BP 102/69
== END 2023-10-16 22:01 | disposition home or self-care (01) ==
LOC: EDUNIT# 19:21 → ER 19:25
DX: N39.0 Urinary tract infection, site not specified (principal)
CPT/HCPCS: 36415; 74177; 80053; 81000; 84703; 85025; 86141; 87077; 87088; 87186; 96365